=== PATIENT | female | born 2000 | race Caucasian/White ===

== ENCOUNTER 2024-01-29 13:50 | Outpatient (AMB) | payer OTHER, SELFPAY ==
--- NOTE | 2024-01-29 14:21 | A.OFFVIS_ITS ---
Vital Signs 01/29/24 14:44 Height 5 ft 6 in Weight 184 lb 1.376 oz BMI 29.7 BP 108/67 Blood Pressure Location Lt brachial Position Sitting Pulse 92 Pulse Source Doppler Pulse Oximetry (%) 97 Oxygen Delivery Method Room Air Intake Visit Reasons: Cough Allergies antibiotics Allergy (Severe, Uncoded 01/29/24 14:50) Rash HPI HPI Cough: Details: 23-year-old lady, nonsmoker, with no prior personal history of lung disease and family history of asthma in patient's brother referred for evaluation of chronic cough ongoing for approximately 12 months that initially started with COVID-19 infection. Patient describes cough as intermittently productive of small amount of sputum with no significant diurnal variation, sometimes worse after eating. Patient has been tried on anti current medications, cough suppressants, albuterol MDI, and antibiotics with no significant changes. She does have a r ecent normal pulmonary function testing. She does complain of environmental allergies. Review of Systems Const Denies daytime sleepiness, Denies excessive sweating, Denies fatigue, Denies fever(s), Denies lethargy, Denies malaise, Denies night sweats, Denies snoring and Denies weight loss Eyes Denies blurry vision and Denies itchy eyes ENT Denies nasal congestion, Denies post nasal drip, Denies sinus pain, Denies sinus pressure and Denies other ( Thrush) Card Denies chest pain, Denies pedal edema, Denies dyspnea, Denies orthopnea and Denies paroxysmal nocturnal dyspnea Resp Reports cough, Denies hemoptysis, Denies excessive phlegm production, Denies dyspnea, Denies snoring and Denies wheezing GI Denies abdominal pain and Denies heartburn Musc Denies myalgias, Denies arthralgias and Denies joint swelling Skin/Breast Denies rash Neuro Denies memory loss and Denies seizure-like activity Psych Denies abnormal sleep pattern, Denies anxiety and Denies memory loss Endo Denies excessive sweating, Denies fatigue and Denies heat intolerance Saran/Lymph Denies easy bruising Aller/Immun Denies itchy eyes, Denies seasonal rhinorrhea and Denies wheezing Physical Exam Vital Signs: Last Vital Signs Pulse 92 01/29/24 14:44 BP 108/67 01/29/24 14:44 Pulse Ox 97 01/29/24 14:44 Oxygen Delivery Method Room Air 01/29/24 14:44 BMI result Body Mass Index 29.7 Const General: no acute distress and alert Nutritional Appearance: not obese Orientation/consciousness: Other orientation findings ( oriented) HEENT Head: Yes atraumatic Eyes General: appearance normal, both eyes and all related structures Sclerae: sclerae normal EOM: EOMs intact bilaterally Neck Neck: Yes supple Lymphatic: no lymphadenopathy noted Resp Effort & Inspection: normal respiratory effort and no use of accessory muscles Auscultation: clear to auscultation bilaterally Cardio Rate: regular rate Rhythm: regular rhythm Heart sounds: no gallops, no murmurs and no rubs Skin General skin exam: other ( warm) Extrem General: No clubbing, No cyanosis and No edema Assessment & Plan Assessment & Plan (1) Chronic cough: Code(s): R05.3 - Chronic cough Category: Medical Plan: Unclear etiology, but suspect allergic/immunologic component. Will start on empiric Arnuity. Results of pulmonary function test reviewed and are normal. (2) Environmental allergies: Code(s): Z91.09 - Other allergy status, other than to drugs and biological substances Category: Medical Plan: Will obtain IgE level, CBC with differential, and RAST panel for further evaluation. Orders: Orders Resp Allergy Profile Region I Today Z91.09 - Other allergy status, other than to drugs and biological substances Medications: New fluticasone furoate 200 mcg/actuation (Arnuity Ellipta) 1 inh inhalation DAILY 1 ea 6RF 30 days Coding Level of Care Code New Pt Level 4 (57518) Diagnoses Chronic cough R05.3 Environmental allergies Z91.09
[2024-01-29 14:44] VITALS: BP 108/67; PULSE 92; O2SAT 97; BMI 29.7
== END 2024-01-29 15:08 | disposition home or self-care (01) ==
PROVIDERS: PCP Nurse Practitioner Primary Care; Referring Provider Nurse Practitioner Primary Care; Visit Provider Internal Medicine Pulmonary Disease
DX: R05.3 Chronic cough (principal); Z91.09 Other allergy status, other than to drugs and biological substances
CPT/HCPCS: 99204

== ENCOUNTER 2024-01-29 13:50 | Outpatient (REF) | payer OTHER, SELFPAY ==
[2024-02-02 23:09] LABS: Class Alternaria alternata 0; Class Aspergillus fumigatus 0; Class Bermuda Grass 0; Class Birch 0; Class Cat Dander 0; Class Cladosporium herbarum 0; Class Cockroach 0; Class Common Ragweed 0; Class Cottonwood 0; Class Derm. pterony 0; Class Dermatophagoides farinae 0; Class Dog Dander 0; Class Elm 0; Class Maple Box Elder 0; Class Mountain Cedar 0; Class Mouse Urine Protein 0; Class Mugwort 0; Class Oak 0; Class Penicillium crysogenum 0; Class Rough Pigweed 0; Class Sheep Sorrel 0; Class Sycamore 0; Class Timothy Grass 0; Class Walnut Tree 0; Class White Ash 0; Class White Mulberry 0; D001 IgE D pteronyssinus <0.10 kU/L; D002 - IgE D farinae <0.10 kU/L; E001 - IgE Cat Dander <0.10 kU/L; E005 - IgE Dog Dander <0.10 kU/L; E072-IgE Mouse Urine <0.10 kU/L; G002 IgE Bermuda Grass <0.10 kU/L; G006 - IgE Timothy Grass <0.10 kU/L; I006-IgE Cockroach, German <0.10 kU/L; Immunoglobulin E 4 kU/L (<OR=114); M001 IgE Penicillium chrysogen <0.10 kU/L; M002 - IgE Cladosporium herbar <0.10 kU/L; M003 - IgE Aspergillus fumigat <0.10 kU/L; M006 - IgE Alternaria alternat <0.10 kU/L; T001 IgE Maple/Box Elder <0.10 kU/L; T003 IgE Common Silver Birch <0.10 kU/L; T006 - IgE Cedar, Mountain <0.10 kU/L; T007 - IgE Oak, White <0.10 kU/L; T008 IgE Elm, American <0.10 kU/L; T010 - IgE Walnut <0.10 kU/L; T011 - IgE Maple Leaf Sycamore <0.10 kU/L; T014 - IgE Cottonwood <0.10 kU/L; T015 - IgE Ash, White <0.10 kU/L; T070 - IgE White Mulberry <0.10 kU/L; W001 - IgE Ragweed, Short <0.10 kU/L; W006 - IgE Mugwort <0.10 kU/L; W014 IgE Pigweed, Common <0.10 kU/L; W018 IgE Sheep Sorrel <0.10 kU/L
== END 2024-01-29 13:51 | disposition home or self-care (01) ==
LOC: HO.LAB 13:50
PROVIDERS: PCP Nurse Practitioner Primary Care; Referring Provider Nurse Practitioner Primary Care; Visit Provider Internal Medicine Pulmonary Disease
DX: R05.3 Chronic cough (principal); Z91.09 Other allergy status, other than to drugs and biological substances
CPT/HCPCS: 36415; 82785; 86003

== ENCOUNTER 2024-02-24 13:29 | Outpatient (AMB) | payer OTHER, SELFPAY ==
[2024-02-24 13:31] VITALS: BP 102/72; PULSE 121; O2SAT 97; BMI 29.0
--- NOTE | 2024-02-24 13:31 | MHC.OFFVIS ---
Vital Signs 02/24/24 13:31 Height 5 ft 6 in Weight 179 lb 10.828 oz BMI 29.0 BP 102/72 Blood Pressure Location Rt brachial Position Sitting Pulse 121 H Pulse Source Doppler Pulse Oximetry (%) 97 Oxygen Delivery Method Room Air Intake Visit Reasons: Cough Allergies antibiotics Allergy (Severe, Uncoded 01/29/24 14:50) Rash HPI HPI Cough: Details: 23-year-old lady, nonsmoker, with no prior personal history of lung disease and family history of asthma in patient's brother referred for evaluation of chronic cough ongoing for approximately 12 months that initially started with COVID-19 infection. Patient describes cough as intermittently productive of small amount of sputum with no significant diurnal variation, sometimes worse after eating. Patient has been tried on anti current medications, cough suppressants, albuterol MDI, and antibiotics with no significant changes. She does have a recent normal pulmonary function testing. She does complain of environmental allergies. After the last office visit patient was started on Arnuity, however she also got a bout of bronchitis that may have masked the response to Arnuity. She does complain of lingering cough though productive component has cleared. She is also complaining of nasal congestion. Review of Systems Const Denies daytime sleepiness, Denies excessive sweating, Denies fatigue, Denies fever(s), Denies lethargy, Denies malaise, Denies night sweats, Denies snoring and Denies weight loss Eyes Denies blurry vision and Denies itchy eyes ENT Reports nasal congestion, Reports post nasal drip, Denies sinus pain, Denies sinus pressure and Denies other ( Thrush) Card Denies chest pain, Denies pedal edema, Denies dyspnea, Denies orthopnea and Denies paroxysmal nocturnal dyspnea Resp Reports cough, Denies hemoptysis, Denies excessive phlegm production, Denies dyspnea, Denies snoring and Denies wheezing GI Denies abdominal pain and Denies heartburn Musc Denies myalgias, Denies arthralgias and Denies joint swelling Skin/Breast Denies rash Neuro Denies memory loss and Denies seizure-like activity Psych Denies abnormal sleep pattern, Denies anxiety and Denies memory loss Endo Denies excessive sweating, Denies fatigue and Denies heat intolerance Saran/Lymph Denies easy bruising Aller/Immun Denies itchy eyes, Denies seasonal rhinorrhea and Denies wheezing Physical Exam Vital Signs: Last Vital Signs Pulse 121 H 02/24/24 13:31 BP 102/72 02/24/24 13:31 Pulse Ox 97 02/24/24 13:31 Oxygen Delivery Method Room Air 02/24/24 13:31 BMI result Body Mass Index 29.0 Const General: no acute distress and alert Nutritional Appearance: not obese Orientation/consciousness: Other orientation findings ( oriented) HEENT Head: Yes atraumatic Eyes General: appearance normal, both eyes and all related structures Sclerae: sclerae normal EOM: EOMs intact bilaterally Neck Neck: Yes supple Lymphatic: no lymphadenopathy noted Resp Effort & Inspection: normal respiratory effort and no use of accessory muscles Auscultation: clear to auscultation bilaterally Cardio Rate: regular rate Rhythm: regular rhythm Heart sounds: no gallops, no murmurs and no rubs Skin General skin exam: other ( warm) Extrem General: No clubbing, No cyanosis and No edema Assessment & Plan Assessment & Plan (1) Environmental allergies: Code(s): Z91.09 - Other allergy status, other than to drugs and biological substances Category: Medical Plan: Results of immunologic studies reviewed, and at this time there is no significant allergic component. Patient does complain of significant postnasal drip, will start on empiric ipratropium. (2) Chronic cough: Code(s): R05.3 - Chronic cough Category: Medical Plan: Now after a bronchitic exacerbation. Will start on empiric codeine and continue on Arnuity, if not better on Arnuity, will consider switching to Breo. Medications: New codeine-guaifenesin 10-100 mg/5 mL 10 mL PO Q4-6H PRN 473 mL 0RF cough 14 days ipratropium bromide administer into each nostril 2 sprays intranasal TID 15 mL 6RF 30 days Coding Level of Care Code Est Pt Level 4 (69525) Diagnoses Environmental allergies Z91.09 Chronic cough R05.3
== END 2024-02-24 14:04 | disposition home or self-care (01) ==
PROVIDERS: PCP Nurse Practitioner Primary Care; Visit Provider Internal Medicine Pulmonary Disease
DX: Z91.09 Other allergy status, other than to drugs and biological substances (principal); R05.3 Chronic cough
CPT/HCPCS: 99214

== ENCOUNTER → 2024-02-24 13:29 | Outpatient (BNVA) | payer OTHER, SELFPAY | PROVIDERS: PCP Nurse Practitioner Primary Care; Visit Provider Internal Medicine Pulmonary Disease ==

== ENCOUNTER 2024-03-16 14:35 | Outpatient (AMB) | payer OTHER, SELFPAY ==
[2024-03-16 14:38] VITALS: BP 122/74; PULSE 110; O2SAT 96; BMI 28.8
--- NOTE | 2024-03-16 14:38 | MHC.OFFVIS ---
Vital Signs 03/16/24 14:38 Height 5 ft 6 in Weight 178 lb 9.191 oz BMI 28.8 BP 122/74 Blood Pressure Location Lt brachial Position Sitting Pulse 110 H Pulse Source Pulse Oximeter Pulse Oximetry (%) 96 Oxygen Delivery Method Room Air Intake Visit Reasons: Cough Allergies antibiotics Allergy (Severe, Uncoded 03/16/24 14:40) Rash HPI HPI Cough: Details: 23-year-old lady, nonsmoker, with no prior personal history of lung disease and family history of asthma in patient's brother referred for evaluation of chronic cough ongoing for approximately 12 months that initially started with COVID-19 infection. Patient describes cough as intermittently productive of small amount of sputum with no significant diurnal variation, sometimes worse after eating. Patient has been tried on anti current medications, cough suppressants, albuterol MDI, and antibiotics with no significant changes. She does have a recent normal pulmonary function testing. She does complain of environmental allergies. After the last office visit patient states that her cough symptoms have improved significantly, but not completely resolved and she does have significant worsening after eating. Review of Systems Const Denies daytime sleepiness, Denies excessive sweating, Denies fatigue, Denies fever(s), Denies lethargy, Denies malaise, Denies night sweats, Denies snoring and Denies weight loss Eyes Denies blurry vision and Denies itchy eyes ENT Denies nasal congestion, Denies post nasal drip, Denies sinus pain, Denies sinus pressure and Denies other ( Thrush) Card Denies chest pain, Denies pedal edema, Denies dyspnea, Denies orthopnea and Denies paroxysmal nocturnal dyspnea Resp Reports cough, Denies hemoptysis, Denies excessive phlegm production, Denies dyspnea, Denies snoring and Denies wheezing GI Denies abdominal pain and Denies heartburn Musc Denies myalgias, Denies arthralgias and Denies joint swelling Skin/Breast Denies rash Neuro Denies memory loss and Denies seizure-like activity Psych Denies abnormal sleep pattern, Denies anxiety and Denies memory loss Endo Denies excessive sweating, Denies fatigue and Denies heat intolerance Saran/Lymph Denies easy bruising Aller/Immun Denies itchy eyes, Denies seasonal rhinorrhea and Denies wheezing Physical Exam Vital Signs: Last Vital Signs Pulse 110 H 06/11/24 14:38 BP 122/74 03/16/24 14:38 Pulse Ox 96 03/16/24 14:38 Oxygen Delivery Method Room Air 03/16/24 14:38 BMI result Body Mass Index 28.8 Const General: no acute distress and alert Nutritional Appearance: not obese Orientation/consciousness: Other orientation findings ( oriented) HEENT Head: Yes atraumatic Eyes General: appearance normal, both eyes and all related structures Sclerae: sclerae normal EOM: EOMs intact bilaterally Neck Neck: Yes supple Lymphatic: no lymphadenopathy noted Resp Effort & Inspection: normal respiratory effort and no use of accessory muscles Auscultation: clear to auscultation bilaterally Cardio Rate: regular rate Rhythm: regular rhythm Heart sounds: no gallops, no murmurs and no rubs Skin General skin exam: other ( warm) Extrem General: No clubbing, No cyanosis and No edema Assessment & Plan Assessment & Plan (1) Chronic cough: Code(s): R05.3 - Chronic cough Category: Medical Plan: improved symptoms on Arnuity/nasal ipratropium / codeine syrup. Continue with current regimen. (2) GERD (gastroesophageal reflux disease): Code(s): K21.9 - Gastro-esophageal reflux disease without esophagitis Category: Medical Plan: Will start on b.i.d. omeprazole. Medications: New omeprazole 40 mg PO BID 60 caps 2RF Refilled codeine-guaifenesin 10-100 mg/5 mL 10 mL PO Q4-6H PRN 473 mL 0RF cough 14 days Coding Level of Care Code Est Pt Level 4 (44984) Diagnoses Chronic cough R05.3 GERD (gastroesophageal reflux disease) K21.9
== END 2024-03-16 15:00 | disposition home or self-care (01) ==
PROVIDERS: PCP Nurse Practitioner Primary Care; Visit Provider Internal Medicine Pulmonary Disease
DX: R05.3 Chronic cough (principal); K21.9 Gastro-esophageal reflux disease without esophagitis
CPT/HCPCS: 99214

== ENCOUNTER → 2024-03-16 14:35 | Outpatient (BNVA) | payer OTHER, SELFPAY | PROVIDERS: PCP Nurse Practitioner Primary Care; Visit Provider Internal Medicine Pulmonary Disease ==

== ENCOUNTER 2024-06-22 14:15 | Outpatient (AMB) | payer OTHER, SELFPAY ==
[2024-06-22 14:19] VITALS: BP 110/62; PULSE 98; O2SAT 98; BMI 30.1
--- NOTE | 2024-06-22 14:19 | A.OFFVIS_ITS ---
Vital Signs 06/22/24 14:19 Height 5 ft 6 in Weight 186 lb 4.65 oz BMI 30.1 BP 110/62 Blood Pressure Location Rt brachial Position Sitting Pulse 98 Pulse Source Doppler Pulse Oximetry (%) 98 Oxygen Delivery Method Room Air Intake Visit Reasons: Cough Allergies antibiotics Allergy (Severe, Uncoded 03/16/24 14:40) Rash HPI HPI Cough: Details: 23-year-old lady, nonsmoker, with no prior personal history of lung disease and family history of asthma in patient's brother referred for evaluation of chronic cough ongoing for approximately 12 months that initially started with COVID-19 infection. Patient describes cough as intermittently productive of small amount of sputum with no significant diurnal variation, sometimes worse after eating. Patient has been tried on anti current medications, cough suppressants, albuterol MDI, and antibiotics with no significant changes. She does have a re cent normal pulmonary function testing. She does complain of environmental allergies. After the last office visit patient has been using omeprazole, nasal ipratropium, and Arnuity with somewhat improved control of his symptoms. She does continue to complain of significant swallowing/eating related cough and is pending GI evaluation. Review of Systems Const Denies daytime sleepiness, Denies excessive sweating, Denies fatigue, Denies fever(s), Denies lethargy, Denies malaise, Denies night sweats, Denies snoring and Denies weight loss Eyes Denies blurry vision and Denies itchy eyes ENT Denies nasal congestion, Denies post nasal drip, Denies sinus pain, Denies sinus pressure and Denies other ( Thrush) Card Denies chest pain, Denies pedal edema, Denies dyspnea, Denies orthopnea and Denies paroxysmal nocturnal dyspnea Resp Reports cough, Denies hemoptysis, Denies excessive phlegm production, Denies dyspnea, Denies snoring and Denies wheezing GI Denies abdominal pain and Denies heartburn Musc Denies myalgias, Denies arthralgias and Denies joint swelling Skin/Breast Denies rash Neuro Denies memory loss and Denies seizure-like activity Psych Denies abnormal sleep pattern, Denies anxiety and Denies memory loss Endo Denies excessive sweating, Denies fatigue and Denies heat intolerance Saran/Lymph Denies easy bruising Aller/Immun Denies itchy eyes, Denies seasonal rhinorrhea and Denies wheezing Physical Exam Vital Signs: Last Vital Signs Pulse 98 06/22/24 14:19 BP 110/62 06/22/24 14:19 Pulse Ox 98 06/22/24 14:19 Oxygen Delivery Method Room Air 06/22/24 14:19 BMI result Body Mass Index 30.1 Const General: no acute distress and alert Nutritional Appearance: not obese Orientation/consciousness: Other orientation findings ( oriented) HEENT Head: Yes atraumatic Eyes General: appearance normal, both eyes and all related structures Sclerae: sclerae normal EOM: EOMs intact bilaterally Neck Neck: Yes supple Lymphatic: no lymphadenopathy noted Resp Effort & Inspection: normal respiratory effort and no use of accessory muscles Auscultation: clear to auscultation bilaterally Cardio Rate: regular rate Rhythm: regular rhythm Heart sounds: no gallops, no murmurs and no rubs Skin General skin exam: other ( warm) Extrem General: No clubbing, No cyanosis and No edema Assessment & Plan Assessment & Plan (1) Chronic cough: Code(s): R05.3 - Chronic cough Category: Medical (2) GERD (gastroesophageal reflux disease): Code(s): K21.9 - Gastro-esophageal reflux disease without esophagitis Category: Medical (3) Environmental allergies: Code(s): Z91.09 - Other allergy status, other than to drugs and biological substances Category: Medical Plan Some improvement on current therapy, however not complete symptom control. Patient is scheduled to have GI evaluation with likely EGD/MBS. Will await GI evaluation before proceeding further. Continue current therapeutic regimen including nasal ipratropium, omeprazole, Arnuity. Coding Level of Care Code Est Pt Level 4 (63722) Diagnoses Chronic cough R05.3 GERD (gastroesophageal reflux disease) K21.9 Environmental allergies Z91.09
== END 2024-06-22 15:54 | disposition home or self-care (01) ==
PROVIDERS: PCP Nurse Practitioner Primary Care; Visit Provider Internal Medicine Pulmonary Disease
DX: R05.3 Chronic cough (principal); K21.9 Gastro-esophageal reflux disease without esophagitis; Z91.09 Other allergy status, other than to drugs and biological substances
CPT/HCPCS: 99214

== ENCOUNTER → 2024-06-22 14:15 | Outpatient (BNVA) | payer OTHER, SELFPAY | PROVIDERS: PCP Nurse Practitioner Primary Care; Visit Provider Internal Medicine Pulmonary Disease ==

== ENCOUNTER 2024-08-19 15:34 | Outpatient (REF) | payer OTHER, SELFPAY | END 2024-08-19 15:35 | disposition home or self-care (01) | LOC: HO.LAB 15:34 | PROVIDERS: PCP Nurse Practitioner Primary Care; Visit Provider Nurse Practitioner | DX: Z13.89 Encounter for screening for other disorder (principal) ==

== ENCOUNTER 2024-08-26 14:02 | Outpatient (REF) | payer OTHER, SELFPAY ==
--- NOTE | ~2024-08-26 | US_ITS ---
EXAMINATION: US ABDOMEN COMPLETE CLINICAL INFORMATION: Gastroesophageal reflux disease without esophagitis. COMPARISON: None available. TECHNIQUE: Real-time imaging of the abdominal viscera. FINDINGS: PANCREAS: Normal. ABDOMINAL AORTA: The proximal, mid, and distal segments are normal in caliber. INFERIOR VENA CAVA: Visualized portions are normal. LIVER: Normal. The liver is normal in size. The liver contour is normal. Parenchymal echogenicity is normal. No focal hepatic lesion. There is no intrahepatic biliary duct dilatation seen. GALLBLADDER: Normal. The gallbladder is physiologically distended without evidence of stones, sludge, polyps, wall thickening or pericholecystic fluid. COMMON BILE DUCT: Normal in caliber measuring 0.2 cm in diameter. RIGHT KIDNEY: Normal. No hydronephrosis. No renal calculi or focal parenchymal lesions. The kidney measures 9.3 cm in maximum dimension. LEFT KIDNEY: Normal. No hydronephrosis. No renal calculi or focal parenchymal lesions. The kidney measures 10.3 cm in maximum dimension. SPLEEN: Normal. The spleen measures 9.6 cm in maximum dimension. FREE FLUID: None. US/US abdomen complete IMPRESSION: Normal ultrasound. Electronically signed by: Richar Reed MD 09/26/2024 12:01 PM CECIL ANNE
[2024-08-26 16:19] LABS: MANUAL DIFF FLAG NO
[2024-08-26 16:31] LABS: Basophils Absolute Auto 0.1 X10*3/uL (0.0-0.2); Basophils Percent Auto 0.6 % (0-2); Eosinophils Absolute Auto 0.1 X10*3/uL (0.0-0.4); Eosinophils Percent Auto 0.9 % (0-4); Hematocrit 41.6 % (37.0-47.0); Hemoglobin 13.8 g/dl (12.0-16.0); Imm Gran Abs Auto 0.02 X10*3/uL (0.00-0.03); Imm Gran Pct Auto 0.2 % (0.0-0.4); Lymphocytes Absolute Auto 2.2 X10*3/uL (1.2-4.9); Lymphocytes Percent Auto 26.7 % (20-40); Mean Corpuscular HGB Conc 33.2 g/dl (31.0-35.0); Mean Corpuscular Hemoglobin 27.5 pg (27.0-33.0); Mean Corpuscular Volume 82.9 fL (80.0-98.0); Mean Platelet Volume 9.1 fL (9.4-12.3); Monocytes Absolute Auto 0.5 X10*3/uL (0.1-1.2); Monocytes Percent Auto 6.2 % (2-11); Neutrophils Absolute Auto 5.4 x10*3/uL (2.0-8.3); Neutrophils Percent Auto 65.4 % (45-73); Platelet Count 434 X10*3/uL (160-400); Red Blood Count 5.02 X10*6/uL (4.20-5.50); Red Cell Distribution Width 13.2 % (11.0-16.0); White Blood Count 8.2 X10*3/uL (4.8-10.8)
[2024-08-26 16:55] LABS: Alanine Aminotransferase 15 U/L (0-31); Albumin Level 4.2 g/dL (3.5-5.0); Alkaline Phosphatase 96 U/L (39-117); Anion Gap 12 (12-20); Aspartate Amino Transferase 22 U/L (5-31); Bilirubin Total 0.4 mg/dL (0.0-1.0); Blood Urea Nitrogen 11 mg/dL (9-16); Calcium 9.7 mg/dL (8.4-10.2); Carbon Dioxide 25 mmol/L (22-29); Chloride 106 mmol/L (96-108); Estimated Glomerular Filt Rate > 60; Glucose Random 89 mg/dL (60-115); Potassium 3.4 mmol/L (3.3-5.1); Sodium 140 mmol/L (135-145); Total Protein 7.6 g/dL (6.5-8.0)
[2024-09-08 10:35] LABS: Immunoglobulin A 155
[2024-09-08 10:36] LABS: Transglutaminase IgA <1.0
== END 2024-08-26 14:03 | disposition home or self-care (01) ==
LOC: HO.HMGCX 14:02
PROVIDERS: PCP Nurse Practitioner Primary Care; Visit Provider Nurse Practitioner
DX: K21.9 Gastro-esophageal reflux disease without esophagitis (principal); R19.7 Diarrhea, unspecified
CPT/HCPCS: 36415; 76700; 80053; 82784; 85025; 86003; 86364

== ENCOUNTER 2024-11-04 15:36 | Outpatient (AMB) | payer OTHER, SELFPAY ==
--- NOTE | 2024-11-04 15:39 | A.OFFVIS_ITS ---
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 Allergies fluoxetine [From Prozac] Allergy (Unknown, Verified 11/04/24 15:40) Rash Penicillins Allergy (Unknown, Verified 11/04/24 15:40) Rash Medication List - Last Reconciled 11/04/24 by Katiuska Wadsworth, ROLLER PICKER ipratropium bromide 2 sprays intranasal TID 30 days L norgest/e.estradiol-e.estrad 0.15 mg-30 mcg (84)/10 mcg (7) ([place]) 1 tab PO DAILY methylphenidate HCl ER 36 mg PO QAM omeprazole 40 mg PO BID HPI HPI cough: Details: 23-year-old lady, nonsmoker, with no prior personal history of lung disease and family history of asthma in patient's brother referred for evaluation of chronic cough ongoing for approximately 12 months that initially started with COVID-19 infection. Patient describes cough as intermittently productive of small amount of sputum with no significant diurnal variation, sometimes worse after eating. Patient has been tried on anti current medications, cough suppressants, albuterol MDI, and antibiotics with no significant changes. She does have a recent normal pulmonary function testing. She does complain of environmental allergies. After the last office visit patient has stopped Arnuity as it did not change his symptoms. She still has not had her full GI workup. [facility] Surgical History S/P tonsillectomy History of appendectomy Family History Mother Hodgkin lymphoma Maternal Grandmother Breast cancer Social History Alcohol intake: current Alcohol intake frequency: holidays/special occasions only Patient Tobacco Use Status: Never used Tobacco Review of Systems Const Denies daytime sleepiness, Denies excessive sweating, Denies fatigue, Denies fever(s), Denies lethargy, Denies malaise, Denies night sweats, Denies snoring and Denies weight loss Eyes Denies blurry vision and Denies itchy eyes ENT Denies nasal congestion, Denies post nasal drip, Denies sinus pain, Denies sinus pressure and Denies other ( Thrush) Card Denies chest pain, Denies pedal edema, Denies dyspnea, Denies orthopnea and Denies paroxysmal nocturnal dyspnea Resp Reports cough, Denies hemoptysis, Denies excessive phlegm production, Denies dyspnea, Denies snoring and Denies wheezing GI Denies abdominal pain and Denies heartburn Musc Denies myalgias, Denies arthralgias and Denies joint swelling Skin/Breast Denies rash Neuro Denies memory loss and Denies seizure-like activity Psych Denies abnormal sleep pattern, Denies anxiety and Denies memory loss Endo Denies excessive sweating, Denies fatigue and Denies heat intolerance Saran/Lymph Denies easy bruising Aller/Immun Denies itchy eyes, Denies seasonal rhinorrhea and Denies wheezing Physical Exam Vital Signs: Last Vital Signs Pulse 110 H 11/04/24 15:42 BP 118/66 11/04/24 15:42 Pulse Ox 97 11/04/24 15:42 Oxygen Delivery Method Room Air 11/04/24 15:42 BMI result Body Mass Index 30.6 Const General: no acute distress and alert Nutritional Appearance: not obese Orientation/consciousness: Other orientation findings ( oriented) HEENT Head: Yes atraumatic Eyes General: appearance normal, both eyes and all related structures Sclerae: sclerae normal EOM: EOMs intact bilaterally Neck Neck: Yes supple Lymphatic: no lymphadenopathy noted Resp Effort & Inspection: normal respiratory effort and no use of accessory muscles Auscultation: clear to auscultation bilaterally Cardio Rate: regular rate Rhythm: regular rhythm Heart sounds: no gallops, no murmurs and no rubs Skin General skin exam: other ( warm) Extrem General: No clubbing, No cyanosis and No edema Assessment & Plan Assessment & Plan (1) Chronic cough: Code(s): R05.3 - Chronic cough Category: Medical Plan: Unclear etiology, appears to have significant GI component. Will await c ompletion of GI workup. Coding Level of Care Code Est Pt Level 3 (27228) Diagnoses Chronic cough R05.3
[2024-11-04 15:42] VITALS: BP 118/66; PULSE 110; O2SAT 97; BMI 30.6
--- OUTSIDE RECORDS SUMMARY | 2024-11-04 19:19 | XMS_ITS | Clinical Summary ---
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
--- OUTSIDE RECORDS SUMMARY | 2024-11-04 19:20 | XMS_ITS | Data Portability ---
Author Organization [place] - [facility], [facility] Address [address] [place] [address] Assessment Encounter Date Assessment Date Assessment LastModified by Organization Details LastModified Time 01/18/2020 01/18/2020 19 yo female with nl G&D, AG/VC given, +S, -ACD; Screening - Urine GC/Chlam, call if abnl; ADD/ADHD - overall doing well, no side effects, cont current dose of Concerta 36 mg, rarely ever taking 10 mg short acting, f/u 6mths; Anxiety - overall stable, doing well, not in therapy; L Shoulder pain - x mths, unable to see Ortho at this time due to plasencia virus, will get Xrays now, call pt regardless kcamera Not available 01/18/2020 15:55:54 09/12/2020 09/12/2020 ADD/ADHD - academically doing a little worse since fell behind while in hospital and post op from ruptured appy, currently B/C's, meds help, no side effects from Methyphenidate, cont, f/u 6 mths at [facility]; Allergic reaction to Augment - hx hives day 7 of Amox years ago, hives/red/peelin g improving per pt, finished of her Augment last night, discussed with pt need to avoid Amox/PCN/Augment in future kcamera Not available 09/12/2020 12:54:32 02/14/2021 02/14/2021 20 yo female with nl Development, AG/VC given, +S/A, -C/D; BMI 28.4 - diet/exercise discussed, just joined gym; Screening lipid panel - had tran for breakfast, call if abnormal - since not fasting was wnl; ADD/ADHD - academically doing fair, struggling with remote learning, lengthy discussion re: finding 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 tutor/asking for help at beginning of next semester/organiz ing study groups to inc chance of success (especially if still remote and pt encouraged to get her Covid shot as well though currently not planning to do so), f/u Jul 2021; Anxiety - overall ok, no therapy, suggested she id therapist through her college; [employer] - has [employer] and on [facility], gets STD screening there; Transitioning - since has one more year of college agreed to see pt for her senior year and then she will need to id Adult MD after that phong Not available 02/14/2021 10:38:55 03/08/2021 03/08/2021 20yo F with several weeks of left sided low back pain. Has new workout routine and the pain may be due to that. On exam, her pain is located right over her SI joint. Suspect the pain is all muscular in nature and will refer to ortho. Given family history of kidney stones and patient with history of duplicate collecting system, s/p deflux procedure, did check a urine. Urine dip in office with moderate blood, however, UA at lab only showed trace hgb and 1 RBC. Doubt that this is a kidney stone. Urine GC/chlamydia sent, urine negative. If she has continued pain, especially if flank or wrapping around to the abdomen or visible blood in the urine, would get an US of kidneys. Spent >30 mins with patient in room, reviewing records, documentation and reviewing urine labs. Patient cell htirpaeck Not available 03/09/2021 08:53:22 10/24/2021 10/24/2021 ADD/ADHD - academically doing well on dose, primarily taking long acting qAM, no side effects, cont same dose, aware she needs to id Adult MD and med provider who may be Adult MD or psychiatrist, agreed to cover her meds through graduation this February 2022 only, pt to try to get appt with her Mom's MD; Anxiety - inc with school stress, no therapy or meds, not limiting life; Hx Covid - mild sxs, recovered, nl PE, cleared; Migraine without aura - hydration/sleep/ regular meals, dec stress as able Spent 50 min with pt phong Not available 10/24/2021 17:39:40 Plan of Treatment Reminders Order Date Submit Date Provider Last Modified By Organization Details Last Modified Time Details Appointments None recorde d. Lab CT + NG DNA, PCR, urine 2019 020 SIXTO [facility], [address] [place], [address], 0 11:00:38 lipid panel, blood 2020 [facility], [address] [place] [address], [phone], 1 10:23:42 urinaly sis, dipstic k 2020 [facility], [address] [place] [address], [phone], 1 15:16:38 CT + NG DNA, PCR, urine 2020 021 [facility], [address], [place], [address], 1 10:00:08 pregnan cy test, urine 2020 [facility], [address] [place] [address], [phone], 1 15:15:40 unliste d lab - urinaly sis w/refle x culture 2020 [facility], [address] [place], [address], 03:26:36 Referral orthope dic referra l - L lower back, SI joint pain 2020 [facility] (Joseph Cormier), [address], [place], [address], 1 17:08:53 Procedures None recorde d. Surgeries None recorde d. Imaging XR, shoulde r - L upper humeral /should er pain for months, r/o abnorma lity 2019 lliberti Not available 0 16:52:04 XR, humerus - L upper humeral pain for months, r/o abnorma lity 2019 lliberti Not available 0 16:52:18 Medication Orders methylp henidat e ER 36 mg tablet, extende d release 24 hr 2019 020 INTERFACE [id number], [address] [place], [address], 0 15:50:24 methylp henidat e ER 36 mg tablet, extende d release 24 hr 2019 020 SIXTO [id number], [address] [place], [address], 0 12:29:11 Patient TargetsNo targets recorded. Patient Instructions Encounter Date Encounter Id Patient Instructions Last Modified By Organization Details Last Modified Time 01/18/2020 [id number] program - 5 fruits & veggies kcamera Not available 01/18/2020 14:41:25 [id number] program - 1 hour of exercise kcamera Not available 01/18/2020 14:41:26 patient health questionnaire depression assessment* kcamera Not available 01/18/2020 14:45:19 immunization: what you need to know kcamera Not available 01/18/2020 14:41:26 02/14/2021 [id number] program - 5 fruits & veggies kcamera Not available 02/14/2021 09:22:00 [id number] program - 1 hour of exercise kcamera Not available 02/14/2021 09:22:00 patient health questionnaire depression assessment* kcamera Not available 02/14/2021 09:31:13 immunization: what you need to know kcamera Not available 02/14/2021 09:22:00 03/08/2021 [id number] back care and preventing injuries: care instructions htirpaeck Not available 03/08/2021 14:50:46 getting back to normal after low back pain: care instructions htirpaeck Not available 03/08/2021 14:50:46 learning about relief for back pain htirpaeck Not available 03/08/2021 14:50:46 10/24/2021 [id number] vision screen* SIXOT Not available 10/24/2021 16:34:12 Reason for Referral Orthopedic Referral for Low back pain L lower back, SI joint pain Referring Physician: Felicitas Herrera, Pediatric Medicine, Encounter Date: 03/08/2021 Results Created Date Observation Date Name Description Value Unit Range Abnormal Flag Note LastModifiedBy Organization Detail LastModifiedTime 01/18/20 20 01/18/2020 patie nt healt h quest ionna americo depre ssion asses sment * PHQ-9 negati ve Not Available [facility] [address] [place] [address], [phone], 01/18/2020 14:02:50 01/18/20 20 01/19/2020 CT + NG DNA, PCR, urine urine chlamydia amp probe (neg) normal NEGAT IRMA No Chlam ydia Trach omati s RNA detec christina in this patie nt's sampl e (REFE RENCE RANGE /NORM AL VALUE : NOT DETEC CHRISTINA) Note: This test uses trans cript ion- media christina ampli ficat ion metho d to detec t rRNA from C. Trach omati s Not Available [facility] [address] [place], [address], 01/19/2020 11:00:38 01/18/20 20 01/19/2020 CT + NG DNA, PCR, urine urine GC amp probe (neg) normal NEGAT IRMA No Neiss eria Gonor rhoea e RNA detec christina in this patie nt's sampl e (REFE RENCE RANGE /NORM AL VALUE : NOT DETEC CHRISTINA) NOTE: This test uses trans cript ion-m ediat ed ampli ficat ion metho d to detec t rRNA from N.Delfino orrho eae. A negat irma resul t does not precl ude infec tion. In the case of a negat irma urine resul t, testi ng of an endoc ervic al(fe male) or ureth ral (male ) speci men is recom holden d if there is high clini emma suspi cion of infec tion. Due to very high sensi tivit y of Nucle ic Acid Ampli ficat ion Test, false posit irma resul ts may occur . There fore, speci men handl ing is extre jennifer impor tant. In patie nts in whom the disea se is unlik aries, addit ional sampl e for testi ng shoul d be consi dered after an initi al posit irma resul t. The perfo rmanc e consuelo cteri stics of this test have not been evalu ated in child jaden. The Aptim a Combo 2 assay is not inten ded for the evalu ation of suspe cted sexua l abuse or for other medic o-leg al indic ation s. The order ing provi daryn shoul d asses s if the patie nt had conse nsual sex witho ut risk of sexua l abuse . [facility] if neede d. Conta ct phone numbe r . Thera peuti c failu re or succe ss canno t be deter mined with the Aptim a Combo 2 assay since nucle ic acid may persi st follo wing appro priat e antim icrob ial thera py. The Cente rs for Disea se Contr ol and Preve ntion ([facility]) recom mends confi rmato ry retes ting using cultu re or a diffe rent nucle ic acid ampli ficat ion test when posit irma resul ts occur , if indic ated. Not Available [facility] [address], [place], [address], 01/19/2020 11:00:38 02/15/20 21 02/14/2021 patie nt healt h quest ionna americo depre ssion asses sment * PHQ-9 negati ve Not Available [facility] [address] [place] [address], [place], [address], 02/01/2021 09:10:25 03/08/20 21 03/09/2021 urina lysis w/ref miguel cultu re appear/color YELLO W CLEAR Not Available [facility] [address] [place], [address], 03/09/2021 03:26:33 03/08/20 21 03/09/2021 urina lysis w/ref miguel cultu re sp. gravity 1.026 (1.002 -1.030 ) Not Available [facility] [address] [place], [address], 03/09/2021 03:26:33 03/08/20 21 03/09/2021 urina lysis w/ref miguel cultu re urine pH 6.0 (5.0-8 .0) Not Available [facility] [address] [place], [address], 03/09/2021 03:26:33 03/08/20 21 03/09/2021 urina lysis w/ref miguel cultu re urine albumin TRACE (neg) abnormal Not Available [facility] [address] [place], [address], 03/09/2021 03:26:33 03/08/20 21 03/09/2021 urina lysis w/ref miguel cultu re urine glucose NEGATI VE (neg) Not Available [facility] [address] [place], [address], 03/09/2021 03:26:33 03/08/20 21 03/09/2021 urina lysis w/ref miguel cultu re urine ketones NEGATI VE (neg) Not Available [facility] [address] [place], [address], 03/09/2021 03:26:33 03/08/20 21 03/09/2021 urina lysis w/ref miguel cultu re urine bilirubin NEGATI VE (neg) Not Available [facility] [address] [place], [address], 03/09/2021 03:26:33 03/08/20 21 03/09/2021 urina lysis w/ref miguel cultu re urine hemoglobin TRACE (neg) abnormal Not Available [facility] [address] [place], [address], 03/09/2021 03:26:33 03/08/20 21 03/09/2021 urina lysis w/ref miguel cultu re urine nitrite NEGATI VE (neg) Not Available [facility] [address] [place], [address], 03/09/2021 03:26:33 03/08/20 21 03/09/2021 urina lysis w/ref miguel cultu re urine leukocyte NEGATI VE (neg) Not Available [facility] [address] [place], [address], 03/09/2021 03:26:33 03/08/20 21 03/09/2021 urina lysis w/ref miguel cultu re urobilinogen NORMAL mg/dL (norm) Not Available [facility] [address] [place], [address], 03/09/2021 03:26:33 03/08/20 21 03/09/2021 urina lysis w/ref miguel cultu re urine WBCs 1 /hpf (0-5) Not Available [facility] [address] [place], [address], 03/09/2021 03:26:33 03/08/20 21 03/09/2021 urina lysis w/ref miguel cultu re urine RBCs 1 /hpf (0-3) Not Available [facility] [address] [place], [address], 03/09/2021 03:26:33 03/08/20 21 03/09/2021 urina lysis w/ref miguel cultu re mucus SLIGHT /lpf Not Available [facility] [address] [place], [address], 03/09/2021 03:26:33 03/08/20 21 03/09/2021 urina lysis w/ref miguel cultu re squamous epith 12 /hpf (0-8) high Not Available [facility] [address] [place], [address], 03/09/2021 03:26:33 03/08/20 21 03/09/2021 urina lysis w/ref miguel cultu re clarity CLEAR (clear ) Not Available [facility] [address] [place], [address], 03/09/2021 03:26:33 03/08/20 21 03/09/2021 urina lysis w/ref mgiuel cultu re culture indication CULTUR E NOT INDICA CHRISTINA Not Available [facility] [address] [place], [address], 03/09/2021 03:26:33 03/08/20 21 03/09/2021 CT + NG DNA, PCR, urine urine chlamydia amp probe (neg) NEGAT IRMA No Chlam ydia Trach omati s RNA detec christina in this patie nt's sampl e (REFE RENCE RANGE /NORM AL VALUE : NOT DETEC CHRISTINA) Note: This test uses trans cript ion- media christina ampli ficat ion metho d to detec t rRNA from C. Trach omati s Not Available [facility] [address] [place], [address], 03/09/2021 10:00:08 03/08/20 21 03/09/2021 CT + NG DNA, PCR, urine urine GC amp probe (neg) NEGAT IRMA No Neiss eria Gonor rhoea e RNA detec christina in this patie nt's sampl e (REFE RENCE RANGE /NORM AL VALUE : NOT DETEC CHRISTINA) NOTE: This test uses trans cript ion-m ediat ed ampli ficat ion metho d to detec t rRNA from N.Delfino orrho eae. A negat irma resul t does not precl ude infec tion. In the case of a negat irma urine resul t, testi ng of an endoc ervic al(fe male) or ureth ral (male ) speci men is recom holden d if there is high clini emma suspi cion of infec tion. Due to very high sensi tivit y of Nucle ic Acid Ampli ficat ion Test, false posit irma resul ts may occur . There fore, speci men handl ing is extre jennifer impor tant. In patie nts in whom the disea se is unlik aries, addit ional sampl e for testi ng shoul d be consi dered after an initi al posit irma resul t. The perfo rmanc e consuelo cteri stics of this test have not been evalu ated in child jaden. The Aptim a Combo 2 assay is not inten ded for the evalu ation of suspe cted sexua l abuse or for other medic o-leg al indic ation s. The order ing provi daryn shoul d asses s if the patie nt had conse nsual sex witho ut risk of sexua l abuse . [facility] lt [facility] if neede d. Conta ct phone numbe r . Thera peuti c failu re or succe ss canno t be deter mined with the Aptim a Combo 2 assay since nucle ic acid may persi st follo wing appro priat e antim icrob ial thera py. The Cente rs for Disea se Contr ol and Preve ntion ([facility]) recom mends confi rmato ry retes ting using cultu re or a diffe rent nucle ic acid ampli ficat ion test when posit irma resul ts occur , if indic ated. Not Available [facility] [address] [place], [address], 03/09/2021 10:00:08 03/08/20 21 03/08/2021 urina lysis , dipst ick Leukocytes Negati ve Not Available [facility] [address] [place] [address], [address], 03/08/2021 14:50:58 03/08/20 21 03/08/2021 urina lysis , dipst ick Nitrite negati ve Not Available [facility] [address] [place] [address], [address], 03/08/2021 14:50:58 03/08/20 21 03/08/2021 urina lysis , dipst ick Urobilinogen Negati ve Not Available [facility] [address] [place] [address], [address], 03/08/2021 14:50:58 03/08/20 21 03/08/2021 urina lysis , dipst ick Protein Negati ve Not Available [address], [address], 03/08/2021 14:50:58 03/08/20 21 03/08/2021 urina lysis , dipst ick pH 5.0 Not Available [address], [address], 03/08/2021 14:50:58 03/08/20 21 03/08/2021 urina lysis , dipst ick Blood 3+ Not Available [address], [address], 03/08/2021 14:50:58 03/08/20 21 03/08/2021 urina lysis , dipst ick Specific Churdan 1.020 Not Available [address], [address], 03/08/2021 14:50:58 03/08/20 21 03/08/2021 urina lysis , dipst ick Ketone Negati ve Not Available [address], [address], 03/08/2021 14:50:58 03/08/20 21 03/08/2021 urina lysis , dipst ick Bilirubin Negati ve Not Available [address], [address], 03/08/2021 14:50:58 03/08/20 21 03/08/2021 urina lysis , dipst ick Glucose Negati ve Not Available [address], [address], 03/08/2021 14:50:58 03/08/20 21 03/08/2021 pregn shayne test, urine Result negati ve Not Available [address], [address], 03/08/2021 15:01:21 10/24/19 22 10/24/2021 visio n scree n* RIGHT (SNELLEN) Not Available [address], [address], 10/24/2021 16:20:23 10/24/19 22 10/24/2021 visio n scree n* LEFT (SNELLEN) Not Available [address], [address], 10/24/2021 16:20:23 10/24/19 22 10/24/2021 visio n scree n* BOTH (SNELLEN) Not Available [address], [address], 10/24/2021 16:20:23 01/18/20 20 01/18/2020 XR, kourtney us No observ ation record ed. lvoight Not Available 2019 09:51:16 Result Notes None recorded. Problems Name Problem SNOMED Code Status Onset Date Resolution Date Notes Provider Name and Address Organization Details Recorded Time Disorder of menstrua tion 142721753 Active on OCPs through [employer] Elizabet Alvarado MD [address] [place] [address], [address] , [facility] - [facility] 10:34:23 Motor tic disorder 638828164 Active Elizabet Alvarado MD [address] [place] [address], , [facility] 4 17:12:59 Tic disorder 640175 Completed 04/22/2016 Elizabet Alvarado MD [address] [place] [address], , [facility] 6 09:14:07 Seizure 30850277 Completed 04/22/2016 Elizabet Alvarado MD [address] [place] [address], , [facility] 6 09:14:10 Otitis 63642606 Completed 04/22/2016 Elizabet Alvarado MD [address] [place] [address], , [facility] 6 09:14:01 Urticari a 763878508 Completed 04/22/2016 Elizabet Alvarado MD [address] [place] [address], , [facility] 6 09:13:50 Peeling of skin 491017191 Completed 04/22/2016 Elizabet Alvarado MD [address] [place] [address], , [facility] 6 09:13:57 Otitis externa 4573012 Completed 04/22/2016 Elizabet Alvarado MD [address] [place] [address], , [facility] 6 09:13:55 Streptoc occal sore throat 24438883 Completed 03/14/2017 Elizabet Alvarado MD [address] [place] [address], , [facility] 7 08:44:53 Anxiety 33761329 Active anxiety disorder per therapis t Fanny Elizabet Alvarado MD [address] [place] [address], , [facility] 8 15:51:35 Increase d body mass index 90801383 Completed 01/18/2020 Elizabet Alvarado MD [address] [place] [address], , [facility] 0 15:57:09 Acute pharyngi tis 974292957 Completed 04/22/2016 Elizabet Alvarado MD [address] [place] [address], , [facility] 6 08:57:30 Ventilat ion tube finding 277236814 Completed 201802/14/2021 Elizabet Alvarado MD [address] [place] [address], , [facility] 1 10:34:12 Gastroes ophageal reflux disease 460791760 Completed 201802/14/2021 resolved 12/2019 Elizabet Alvarado MD [address] [place] [address], , [facility] 1 10:40:32 Shoulder pain 22210257 Completed 201902/14/2021 Xrays ordered, refer to Radha Alvarado MD [address] [place] [address], , [facility] 1 10:34:09 Low back pain 227522819 Active 2020 radha Herrera [facility] 1 08:53:28 History of SARS-CoV -2 [id number] 7525903 Active 2021 +09/2021 , mild sxs Elizabet Alvarado MD [address] [place] [address], , [facility] 2 16:12:00 Migraine 38574623 Active 2021 Elizabet Alvarado MD [address] [place] [address], , [facility] 2 16:17:16 Acute suppurat irma otitis media with spontane ous rupture of ear drum 05490196 Completed 01/26/2013 Not Available [facility] 3 03:01:13 Cough 75542868 Completed 01/02/2012 Not Available [facility] 3 03:01:13 Contusio n of globe of eye 472545308 Completed 01/26/2013 Not Available [facility] 3 03:01:13 Otitis media 24960160 Completed 200701/02/2012 Not Available [facility] 3 03:01:13 Viral disease 98431905 Completed 200801/02/2012 Not Available [facility] 3 03:01:13 Disorder of middle ear 97691081 Completed 01/02/2012 Not Available [facility] 3 03:01:13 Urinary tract infectio us disease 78714117 Completed 200601/02/2012 Not Available [facility] 3 03:01:13 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 659336947 Completed 01/02/2012 Not Available [facility] 3 03:01:13 Acute conjunct ivitis 09268603 Completed 01/26/2013 Not Available [facility] 3 03:01:13 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 Elizabet Alvarado MD [address] [place] [address], , [facility] 5 12:58:06 Otitis externa 4917958 Completed 01/26/2013 Elizabet Alvarado MD [address] [place] [address], , [facility] 6 09:13:55 Otitis externa 2826284 Completed 200801/02/2012 Elizabet Alvarado MD [address] [place] [address], , [facility] 6 09:13:55 Allergic rhinitis 51120382 Completed 01/02/2012 Not Available [facility] 3 03:01:13 Pain in limb 96155390 Completed 01/02/2012 Not Available [facility] 3 03:01:13 Streptoc occal sore throat 96497805 Completed 01/02/2012 Elizabet Alvarado MD [address] [place] [address], , [facility] 7 08:44:53 Viral pneumoni a 69505085 Completed 200701/02/2012 Not Available [facility] 3 03:01:13 Problem Notes None recorded. Procedures Surgical History Date Name Laterality Status Provider Name and Address Organization Details Recorded Time 0 Appendectomy completed Elizabet Alvarado MD [address] [place], [address], [facility] 09/06/2020 13:57:52 Imaging Results Imaging Date Name Status LastModified by Organiz ation Details LastModified Time 01/18/2020 XR, humerus completed lvoight Information n ot available 01/20/2020 09:51:16 Procedure Notes None recorded. Medical Equipment None Reported. Allergies Allergen ID Allergen Name Allergen Category Reaction Reaction Severity Criticality Documentation Date Start Date Code Code System Note Provider Name and Address Organization Details Recorded Time 03497 Prozac medicatio n Not available Not available Not available 12/30/2013 92090 RxNorm motor tic Andrew Quan MD [address] [place] [address], 3, [facility] 4 14:56:22 77564 Augmentin medicatio n hives Not available Not available 05/16/2014 62278 2 RxNorm day 7 of 2019 whole body hives after appen dicit is Elizabet Alvarado MD [address] [place] [address], 3, [facility] 0 12:13:51 Medications Name Sig Start Date Stop Date Status Note LastModified by Organization Details LastModified Time Apri 0.15 mg-0.03 mg tablet TAKE 1 TABLET BY MOUTH EVERY DAY 03/09 completed Not Available Not Available Not Available methylphe nidate 10 mg tablet TAKE 1 TABLET BY MOUTH EVERY EVENING active PRN Not Available Not Available No t Available Claritin 10 mg tablet Take 1 tablet every day by oral route for 30 days. 2009 active PRN Not Available Not Available Not Avai lable methylphe nidate 5 mg tablet active Not Available Not Available No t Available penicilli n V potassium 500 mg tablet Take 1 tablet twice a day by oral route for 10 days. 10/21 completed MORE THAN 60 POUNDS TWICE DAILY DOSING FROM NEW STREP PROTOCOL Not Available Not Available Not Available melatonin 3 mg tablet TAKE 1 TABLET BY MOUTH AT BEDTIME active PRN Not Available Not Available No t Available tramadol 50 mg tablet 02/14 completed Not Available Not Available Not Available acetamino phen 120 mg-codein e 12 mg/5 mL Elixir active Not Available Not Available No t Available ofloxacin 0.3 % ear drops INSTILL 5 DROPS INTO AFFECTED EAR(S) 2 TIMES PER DAY 04/28 completed Not Available Not Available Not Available ciproflox acin 0.3 % eye drops active Not Available Not Available Not Available Nortrel 0.5/35 (28) 0.5 mg-35 mcg tablet TAKE 1 TABLET BY MOUTH EVERY DAY 02/14 completed Not Available Not Available Not Available cephalexi n 500 mg capsule active Not Available Not Available Not Available oseltamiv ir 75 mg capsule TAKE 1 CAPSULE BY MOUTH TWICE A DAY FOR 14 DAYS active Not Available Not Available No t Available Concerta 36 mg tablet,ex tended release TAKE 1 TABLET BY MOUTH EVERY DAY IN THE MORNING DIRECTED active Not Available Not Available No t Available polymyxin B sulfate 10,000 unit-trim ethoprim 1 mg/mL eye drops Instill 2 drops into both eyes 3 times daily for 5 days active Not Available Not Available No t Available ibuprofen 400 mg tablet 02/14 completed Not Available Not Available Not Available fluoxetin e 10 mg capsule active Not Available Not Available Not Available omeprazol e 20 mg capsule,d elayed release TAKE 1 CAPSULE BY MOUTH EVERY DAY 12/13 completed Not Available Not Available Not Available cephalexi n 500 mg tablet Take 1 tablet 3 times a day by oral route for 10 days. 2014 active Not Available Not Available Not Avai lable amoxicill in 250 mg capsule active Not Available Not Available Not Available hydrocodo ne 5 mg-acetam inophen 500 mg tablet active Not Available Not Available Not Available ibuprofen 600 mg tablet active Not Available Not Available Not Available methylphe nidate ER 18 mg tablet,ex tended release 24 hr active Not Available Not Available Not Available fluticaso ne propionat e 50 mcg/actua tion nasal spray,ashley pension [facility] 1 spray every day by intranas al route at bedtime. active Not Available Not Available No t Available amoxicill in 875 mg-potass ium clavulana te 125 mg tablet Take 1 tablet every 12 hours by oral route for 10 days. 09/12 completed Not Available Not Available Not Available tobramyci n 0.3 %-dexamet hasone 0.1 % eye drops,ashley pension active Not Available Not Available Not Available neomycin- polymyxin -hydrocor t 3.5 mg-10,000 unit/mL-1 % ear drops,ashley p INSTILL 4 DROPS INTO AFFECTED EAR 3 TIMES A DAY FOR 7 DAYS 04/22 completed Not Available Not Available Not Available methylphe nidate ER 27 mg tablet,ex tended release 24 hr active Not Available Not Available Not Available Ciprodex 0.3 %-0.1 % ear drops,ashley pension INSTILL 4 DROPS INTO AFFECTED EAR(S) BY OTIC ROUTE 2 TIMES PER DAY FOR 7 D... 04/22 completed Not Available Not Available Not Available chlorhexi dine gluconate 0.12 % mouthwash active Not Available Not Available No t Available multivita min active AND IRON QD Not Available Not Available Not Available Alyacen 1/35 (28) 1 mg-35 mcg tablet TAKE 1 TABLET BY MOUTH EVERY DAY active Not Available Not Available No t Available Fluzone Quad 5773-8939 60 mcg (15 mcg x 4)/0.5 mL intramusc ular susp. VACCINAT ION ADMINIST ERED BY PHARMACI ST 12/13 completed Not Available Not Available Not Available Vitals Date Recorded Body height Body mass index (BMI) Percentile per age and sex Body mass index (BMI) Body weight Systolic blood pressure Diastolic blood pressure Provider Name and Address Organization Details Last Updated DateTime 0 167.64 cm 83 % 26 kg/m2 40055.0 9 g 114 mm[Hg] 60 mm[Hg] Monique Gomes [facility] 0 14:05:44 Date Recorded Body height Body mass index (BMI) Percentile per age and sex Body mass index (BMI) Body weight Systolic blood pressure Diastolic blood pressure Provider Name and Address Organization Details Last Updated DateTime 0 167.64 cm 81 % 25.9 kg/m2 38065.5 g 108 mm[Hg] 62 mm[Hg] Glenys Rodriguez R.N. [facility] 0 11:43:18 Date Recorded Body height Body mass index (BMI) Body weight Systolic blood pressure Diastolic blood pressure Provider Name and Address Organization Details Last Updated DateTime 02/14/2021 167.64 cm 28.4 kg/m2 35681.98 g 116 mm[Hg] 64 mm[Hg] Monique Gomes [facility] 1 09:05:29 Date Recorded Body height Body mass index (BMI) Body weight Systolic blood pressure Diastolic blood pressure Provider Name and Address Organization Details Last Updated DateTime 10/24/2021 167.64 cm 31.6 kg/m2 01776.67 g 108 mm[Hg] 62 mm[Hg] Xochitl Cordoba R.N. [facility] 2 15:58:19 Social History Question Answer Notes LastModified by Organizat ion Details LastModified Time Tobacco Smoking Status Never Smoker Evette Benavides, [facility] 01/02/2012 16:10:45 Have There Been Any Changes To Your Family Or Social Situation? No Information not available 02/14/2021 Hard Of Hearing Or Deaf In One Or Both Ears? No Information not available 04/22/2016 Legally Blind In One Or Both Eyes? No Information not available 04/22/2016 Parent's Marital Status 05 Information not available 08/10/2011 Home Situation Mother Information not available 08/10/2011 Siblings Mili (F) 09/27/1994 Salvador Spain (M) 05 Information not available 08/10/2011 Year In School [employer] 2020 Information not available 02/14/2021 Parent's Name Niesha [email or web address] Information not available 08/10/2011 Parent's Name Mitchel --sees Dad Appx 2-3 X Per Wk Information not available 08/10/2011 DSS/DCF Custody No Information not available 04/22/2016 What Was The Date Of Your Most Recent Tobacco Screening? 04/28/2019 [email or web address]_ Information not available 04/29/2019 Are You Passively Exposed To Smoke? No slevin Information not available 12/30/2013 How Much Tobacco Do You Smoke? No Information not available 04/22/2016 Sex: Unknown Functional Status None recorded. Mental Status None recorded. Family History Relationship Description Onset Age of this Age Resolved Age Notes LastModified by Organization Details LastModified Time Mother Problem Rangel ns Not available 02/15/2015 08:42:25 Mother Diabetes mellitus previo usly record ed as Diabet es Not available 02/15/2015 08:42:25 Mother Malignant neoplastic disease previo usly record ed as Cancer Not available 02/15/2015 08:42:25 Maternal Grandmother Hypercholest erolemia previo usly record ed as Elevat ed Choles terol Not available 02/15/2015 08:42:25 Maternal Grandmother Malignant neoplastic disease previo usly record ed as Cancer Not available 02/15/2015 08:42:25 Paternal Grandmother Alcoholism Not available 08:42:25 Father Allergy season al, seafoo d, nuts (previ ously record ed as Allerg ies) Not available 02/15/2015 08:42:25 Father Disorder of thyroid gland Not available 2014 08:42:25 Notes:Updated 02/14/21 Medical History Condition Response CARDIAC PROBLEMS N ALLERGIC AND IMMUNOLOGIC PROBLEMS Y DEVELOPMENTAL/ BEHAVIORAL PROBLEMS Y GENITOURINARY Y HOSPITALIZATIONS Y ACCIDENTS INJURIES N VISION IMPAIRMENT N ENDOCRINE PROBLEMS/DIABETES N GI PROBLEMS/CONSTIPATION Y OPHTHALMOLOGIC PROBLEMS N ORTHOPEDIC PROBLEMS Y CHICKEN POX / VARICELLA HISTORY or POSIT IRMA TITER N HEARING IMPAIRMENT N MUSCLE/ JOINT/ BONE PROBLEMS N RHEUMATOLOGIC PROBLEMS N DERMATOLOGIC PROBLEMS/ECZEMA N ENT PROBLEMS/OTITIS MEDIA/ CHRONIC Y FUEL CELL BINDER PROBLEMS Y HEMATOLOGIC /ONCOLOGIC PROBLEMS N RENAL PROBLEMS N OTHER N NEUROLOGIC/ SEIZURES OR CONVULSIONS N ADHD Y HEADACHES/MIGRAINES/DIZZINESS N CONGENITAL AND GENETIC PROBLEMS N INFECTIOUS DISEASE PROBLEMS Y PUMONARY PROBLEMS/ ASTHMA N PSYCH PROBLEMS N Gynecological History Statement/Question Response Date of LMP 02/13/2021 Age at onset of periods 11 yrs 04/15/2016 Obstetrics History GPAL:G 0 P 0 0 0 0 Immunizations Vaccine Type Date Status Note Provider Nam e and Address Organization Details Recorded Time meningococcal MCV4P 1 completed Not Available [facility] 2019 02:33:25 Tdap 1 completed Not Available [facility] 02:[facility]42 Influenza, split virus, trivalent, preservative 1 completed Not Available [facility] 2019 02:35:18 HPV, quadrivalent 2 completed Not Available [facility] 2019 02:33:59 HPV, quadrivalent 2 completed Not Available [facility] 2019 02:34:00 Influenza, split virus, trivalent, preservative 2 completed Not Available [facility] 2019 02:35:23 HPV, quadrivalent 2 completed Not Available [facility] 2019 02:34:02 Influenza, split virus, quadrivalent, PF 3 completed Not Available [facility] 2019 02:35:37 Influenza, split virus, quadrivalent, PF 4 completed Not Available [facility] 2019 02:35:57 Influenza, split virus, quadrivalent, PF 5 completed Not Available [facility] 2019 02:36:26 meningococcal MCV4P 6 completed Not Available [facility] 2019 02:36:47 Influenza, split virus, quadrivalent, PF 6 completed Not Available [facility] 2019 02:37:08 influenza, unspecified formulation 9 completed Brit ch [place] [facility] 12/14/2019 14:39:16 meningococcal B, OMV 7 completed Not Available [facility] 2019 02:37:44 Influenza, split virus, quadrivalent, PF 7 completed Not Available [facility] 2019 02:37:53 meningococcal B, OMV 7 completed Not Available [facility] 2019 02:38:07 varicella 0 completed Not Available [facility] 2019 02:33:08 Influenza, split virus, quadrivalent, PF 8 completed Not Available [facility] 2019 02:38:35 Hep A, adult 0 completed JORGE LUIS Gomes, [facility] 01/18/2020 14:48:18 Influenza, split virus, quadrivalent, PF 0 completed Elizabet Alvarado MD [address] [place] [address], [place], [place], , [facility] 07/22/2020 11:37:38 Hep A, adult 0 completed Amy Keyes, [facility] 09/12/2020 13:04:48 Td (adult), 2 Lf tetanus toxoid, preservative free, adsorbed 1 completed JORGE LUIS Gomes, [facility] 02/14/2021 09:52:43 IPV 0 completed Not Available [facility] 08/10/2011 03:17:38 IPV 0 completed Not Available [facility] 08/10/2011 03:17:38 IPV 1 completed Not Available [facility] 08/10/2011 03:17:38 DTaP, unspecified formulation 0 completed Not Available [facility] 08/10/2011 03:17:38 IPV 4 completed Not Available [facility] 08/10/2011 03:17:38 DTaP, unspecified formulation 0 completed Not Available [facility] 08/10/2011 03:17:38 MMR 4 completed Not Available [facility] 08/10/2011 03:19:09 DTaP, unspecified formulation 0 completed Not Available [facility] 08/10/2011 03:17:38 MMR 1 completed Not Available [facility] 08/10/2011 03:17:38 DTaP, unspecified formulation 1 completed Not Available [facility] 08/10/2011 03:17:38 DTaP, unspecified formulation 4 completed Not Available [facility] 08/10/2011 03:17:38 pneumococcal conjugate PCV 7 1 completed Not Available [facility] 08/10/2011 03:17:38 pneumococcal conjugate PCV 7 1 completed Not Available [facility] 08/10/2011 03:17:38 varicella 1 completed Not Available [facility] 08/10/2011 03:17:38 Hep B, unspecified formulation 0 completed Not Available [facility] 08/10/2011 03:17:38 Hep B, unspecified formulation 0 completed Not Available [facility] 08/10/2011 03:17:38 Hep B, unspecified formulation 0 completed Not Available [facility] 08/10/2011 03:17:38 pneumococcal conjugate PCV 7 0 completed Not Available [facility] 08/10/2011 03:19:09 Hib, unspecified formulation 0 completed Not Available [facility] 08/10/2011 03:17:38 Hib, unspecified formulation 0 completed Not Available [facility] 08/10/2011 03:17:38 Hib, unspecified formulation 0 completed Not Available [facility] 08/10/2011 03:17:38 Hib, unspecified formulation 1 completed Not Available [facility] 08/10/2011 03:17:38 Past Encounters Encounter ID Performer Location Encounter Start Date Encounter Closed Date Diagnosis/Indication Diagnosis SNOMED-CT Code Diagnosis ICD10 Code Diagnosis Note [id number] [facility] [address] [place] [address] [place] [address] 09/11/2007 11:02:57 09/11/2007 13:15:31 [id number] [facility] [address] [place] [address] [place] [address] 4 01/19/2008 10:13:21 01/19/2008 10:41:59 [id number] [facility] [address] [place] [address] [place] [address] 4 12/27/2008 16:44:36 12/27/2008 16:58:27 [id number] [facility] [address] [place] [address] [place] [address] 4 01/10/2009 09:45:59 01/10/2009 10:03:28 [id number] [facility] [address] [place] [address] [place] [address] 4 03/20/2009 09:03:45 03/20/2009 09:26:54 [id number] [facility] [address] [place] [address] 09/18/2009 09:40:53 09/18/2009 10:40:39 [id number] [facility] [address] [place] [address] 4 12/19/2009 09:55:09 12/19/2009 11:10:32 [id number] [facility] [address] [place] [id number] 4 07/12/2010 16:15:55 07/12/2010 17:22:33 [id number] [facility] [address] [place] [id number] 4 08/21/2010 10:31:07 08/21/2010 12:50:07 [id number] [facility] [address] [place] [address] 4 09/04/2010 09:59:46 09/04/2010 11:28:22 [id number] [facility] [address] [place] [id number] 4 10/11/2010 09:41:19 10/11/2010 10:51:24 [id number] [facility] [address] [place] [address] 4 12/25/2010 12:59:07 12/25/2010 17:05:14 [id number] [facility] [address] [place] [address] 01/02/2012 15:56:59 01/02/2012 17:08:08 [id number] [facility] [address] [place] [id number] 4 03/12/2012 16:24:08 03/12/2012 16:52:05 [id number] [facility] [address] [place] [address] 4 05/20/2012 11:41:58 05/20/2012 12:00:18 [id number] Andrew Quan MD [facility] [address] [place] [id number] 4 07/10/2012 14:47:37 07/10/2012 16:15:59 [id number] Mitchel Cortez [facility] [address] [place] [id number] 4 08/12/2012 10:48:06 08/12/2012 11:18:25 [id number] Andrew Quan MD [facility] [address] [place] [id number] 4 01/26/2013 09:51:04 01/26/2013 10:26:22 [id number] Elizabet Alvarado MD [facility] [address] [place] [id number] 4 12/02/2013 15:07:47 12/02/2013 17:04:53 Disorder of menstruation 285716456 [id number] [facility] [address] [place] [id number] 4 12/30/2013 12:48:23 12/30/2013 14:55:40 Motor tic disorder 887627606 Adverse re action to drug 53474088 [id number] [facility] w [address] [place] [id number] 4 01/25/2014 13:00:32 01/25/2014 13:55:33 Well child 693219098 Child atte ntion deficit disorder 530560143 [id number] [facility] Shaun [address] [address] 4 03/17/2014 15:09:46 03/17/2014 16:39:34 Disorder of menstruation 103336494 Motor tic disorder 286806941 [id number] [facility] w [address] [place] [id number] 4 03/25/2014 16:26:36 03/25/2014 17:00:57 Tic disorder 600019 Seizure 31469313 [id number] Bee Mckenzie M.A. [facility] [address] [place] [id number] 4 05/02/2014 15:12:23 05/02/2014 15:42:53 Otitis 75008963 [id number] Alba Dowling M.A. [facility] [address] [place] [id number] 4 05/16/2014 16:35:03 05/16/2014 17:04:42 Urticaria 546716499 Peeling of skin 637749750 Otitis externa 1724383 [id number] Alba Dowling M.A. [address] [address] 4 12/15/2014 14:16:55 12/15/2014 15:50:07 Streptococcal sore throat 59993815 [id number] [address] [address] 4 02/15/2015 08:27:34 02/15/2015 13:03:53 Well child 075179524 Child atte ntion deficit disorder 003961668 Anxiety 67229618 Seizure 02742997 Tic disorder 176448 Academic problem 2953828 Increased body mass index 19438294 [id number] [address] [address] 4 05/25/2015 13:33:18 05/25/2015 14:27:30 Acute pharyngitis 906416149 Otitis externa 6760710 [id number] Andrew Quan MD [address] [address] 4 08/14/2015 16:24:06 08/14/2015 17:59:58 Active or passive immunization 693478955 Z23 [id number] Elizabet Alvarado MD [address] [address] 4 04/22/2016 08:10:38 04/22/2016 09:27:18 Well child 375307579 Z00.129 Active or passive immunization 401333277 Z23 Anxiety 10436691 F41.9 Tic disorder 148469 F98 .4 Disorder o f menstruation 959967256 N92.6 [id number] Elizabet Alvarado MD [address] [address] 4 06/20/2017 15:21:03 06/20/2017 16:40:11 Active or passive immunization 324754701 Z23 Well child 291936173 Z00 .129 Disorder o f menstruation 128677172 N92.6 Child atte ntion deficit disorder 299760429 F98.8 Motor tic disorder 67010 7001 F95.8 Increased body mass index 16205276 E66.9 Anxiety 00300592 F41.9 [id number] Pam Tierney [facility] [address] [place] [address] 07/23/2017 15:21:07 07/23/2017 15:52:52 Active or passive immunization 477356808 Z23 [id number] Elizabet Alvarado MD [facility] [address] [place] [address] 4 12/19/2017 14:56:45 12/19/2017 16:27:45 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 647898002 F90.9 Anxiety 62969644 F41.9 Disorder o f menstruation 788838960 N92.6 [id number] Elizabet Alvarado MD [facility] [address] [place] [address] 02/02/2018 15:59:00 02/02/2018 17:25:35 Anxiety 65981936 F41.9 [id number] Elizabet Alvarado MD [facility] [address] [place] [address] 4 02/23/2018 14:49:42 02/24/2018 10:02:02 Anxiety 39120134 F41.9 [id number] Elizabet Alvarado MD [facility] [address] [place] [address] 4 03/09/2018 08:17:14 03/09/2018 09:23:10 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 278212319 F90.9 Anxiety 43741599 F41.9 Disorder o f menstruation 632646513 N92.6 [id number] Elizabet [facility]varado MD [facility] [address] [place] [address] 08/10/2018 08:19:22 08/10/2018 10:30:00 Active or passive immunization 695953728 Z23 Adult heal th examination 939308458 Z00.00 Increased body mass index 50162839 E66.3 Child atte ntion deficit disorder 445300849 F90.9 Anxiety 34537119 F41.9 [id number] Elizabet Alvarado MD [facility] [address] [place] [address] 01/06/2019 16:06:49 01/06/2019 16:54:01 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 822620997 F90.9 Anxiety 46341648 F41.9 [id number] Pam Tierney [address] [address] 4 03/12/2019 15:31:27 03/12/2019 16:08:18 Ventilation tube finding 104844681 Z96.22 PET in L TM seems blockedHas not been to ENT in ?7 years-Refe rral to [facility] [place] for ?blocked PET Non-suppur ative otitis media with eustachian tube disorder 982455778 H65.90 [id number] Melissa Mathisnico, DO [facility] w [address] [place] [id number] 4 04/28/2019 12:42:20 04/28/2019 13:35:44 Gastroesophageal reflux disease 041376612 K21.9 Disorder o f menstruation 957827693 N92.6 Child atte ntion deficit disorder 241356418 F98.8 Contact dermatitis 36459 004 L25.9 [id number] Melissadewey Mathisnico, DO [address] [address] 4 06/14/2019 14:31:36 06/14/2019 15:15:18 Gastroesophageal reflux disease 500522366 K21.9 Anxiety 22754736 F41.9 [id number] Elizabet Alvarado MD [address] [address] 4 12/14/2019 14:26:08 12/14/2019 16:18:22 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 598916212 F90.9 Shoulder pain 88360469 M 25.519 Anxiety 22195548 F41.9 [id number] Elizabet Alvarado MD [address] [address] 4 01/18/2020 13:59:39 01/18/2020 15:56:59 Active or passive immunization 699859672 Z23 Adult heal th examination 525417346 Z00.00 Normal bod y mass index 96469596 Z68.24 Child atte ntion deficit disorder 900955411 F90.9 Anxiety 90916105 F41.9 Shoulder pain 50807477 M 25.519 [id number] Elizabet Alvarado MD [address] [address] 4 09/12/2020 11:35:17 09/12/2020 13:05:02 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 082578477 F90.9 Active or passive immunization 476968800 Z23 Allergic r eaction to drug 729929823 T50.905D [id number] Elizabet Alvarado MD [address] [address] 4 02/14/2021 08:57:33 02/14/2021 10:36:47 Active or passive immunization 117572228 Z23 Adult heal th examination 542703054 Z00.00 Diet education 56175730 Z71.3 Exercises education, guidance, and counseling 815350295 Z71.82 Increased body mass index 74907742 E66.3 Child atte ntion deficit disorder 082078822 F90.9 Anxiety 91120946 F41.9 [id number] Felicitas Tirpaeck [address] [address] 4 03/08/2021 14:31:35 03/08/2021 17:12:39 Low back pain 139644191 M54.5 Microscopic hematuria 19 0187413 R31.29 [id number] Elizabet Alvarado MD [address] [address] 4 10/24/2021 15:36:44 10/24/2021 17:11:25 Anxiety 11254370 F41.9 Child atte ntion deficit disorder 635568721 F98.8 History of SARS-CoV-2 29 55087888 67112978 Z86.16 Migraine 87871055 G43.90 9 Health Concerns Section Related Observation LastModified by Organization Detai ls LastModified Time None Recorded Concern Status LastModified by Organization Details LastModified Time None Recorded Advance Directives Directive None Recorded Payers Encounter Date Sequence Insurance Name Policy Number Policy Murphy Covered Member ID Murphy Member ID Guarantor Name 01/18/2020 1 [facility] [id number] Mitchel Crawley [id number] Salvador Fancy 01/18/2020 1 [place] [facility] Casi Crawley [id number] Salvador Fancy 09/12/2020 1 [facility] [id number] Mitchel Crawley [id number] Salvador Fancy 09/12/2020 1 [place] AMAN[place] Crawley [id number] Salvador Fancy 02/14/2021 1 [facility] [id number] Mitchel Crawley [id number] Salvador Fancy 02/14/2021 1 [place] Craw[place] [id number] Salvador Fancy 03/08/2021 1 [facility] [id number] Mitchel Crawley [id number] Salvador Fancy 03/08/2021 1 [place] Craw[place] [id number] Salvador Fancy 10/24/2021 1 [facility] [id number] Mitchel Crawley [id number] Salvador Fancy 10/24/2021 1 [place] Craw[place] [id number] Salvador Fancy Notes Date Note Type Note Provider Name and Address Organization Details Recorded Time 01/18/2020 text/html ADD/ ADHDReporte d bypatient.School Performance:attends school college grade /SCHOOL NAME ([employer]); reported medications (Conc 36 mg 04/11; rarely needs short acting); child is learning; improving (A/B/C); good grades A/Bs and mostly A's, usually keeps meds over summer School Support:well supported; teachers are very involved; [address]; can take test in quiet place/extra time tests - only if asks for it and only needed once Organization:good organization skills (for school only) Mood:stable; anxiety - ok when school going well Sleep:good; adequate sleep, not tired at school Appetitenormal appetite; parents allow snacks Friends:well connected with peers; healthy peer relationships; has 5 roommates in her suite at college, everyone gets along Family:no new stressors Self Esteem:improving Medication rebound symptoms:no rebound effects from medicationRS Sick Visit Narrative HistoryReported bypatient.Notes:Pt is here for ADD med recheck. Currently taking Concerta ER 36mg QD. Has Concerta 10mg as well, but rarely takes it, states she took it a couple times last semester. Doing well on current dose. Denies side effects. 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 Mostly Bs. Denies travel outside /[place]/[facility] in last 14 days. Anxiety - overall doing well, school main stress usually, no therapist Denies travel overseas in the last 14 days. Afebrile. Elizabet Alvarado MD [address] [place], [place], , [facility] 01/18/2020 15:57:31 09/12/2020 text/html ADD/ ADHDReporte d bypatient.School Performance:attends school college grade /SCHOOL NAME ([employer]); reported medications (Conc 36 mg 04/11; rarely needs short acting); child is learning; good grades B/Cs and mostly Cs, usually keeps meds over summer School Support:well supported; teachers are very involved; [address]; can take test in quiet place/extra time tests - only if asks for it and only needed once Organization:good organization skills (for school only) Mood:stable; anxiety - ok when school going well Sleep:good; adequate sleep, not tired at school Appetitenormal appetite; parents allow snacks Friends:well connected with peers; healthy peer relationships; remote for now Family:no new stressors Self Esteem:improving Medication rebound symptoms:no rebound effects from medicationRS Sick Visit Narrative HistoryReported bypatient.Notes:Pt is here for ADD med recheck. Currently taking Concerta ER 36mg QD. Has Concerta 10mg as well, but rarely takes it, states she took it a couple times last semester. Doing well on current dose. Denies side effects. 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 Mostly Bs. [place] [place] [facility] [place]. Just had appy that ruptured so needed surgery and abx for long time. Started with itchy red rash and hives all over in hospital and pt feels she was on Amox, meds not stopped, rx Benadryl and pt has red rash/peeling still and took last dose of Augment last night, never had resp sxs Elizabet Alvarado MD [address] [place], [place], , [facility] 09/12/2020 15:41:15 02/14/2021 text/html ADD/ ADHDReporte d bypatient.School Performance:attends school college grade /SCHOOL NAME ([employer]); reported medications (Conc 36 mg 04/11; rarely needs short acting (less than once a mth)); child is learning; good grades B/Cs and mostly Cs, usually keeps meds over summer School Support:well supported; teachers are very involved; [address]; can take test in quiet place/extra time tests - only if asks for it and only needed once Organization:good organization skills (for school only) Mood:stable; anxiety - ok when school going well Sleep:good; adequate sleep, not tired at school Appetitenormal appetite; parents allow snacks Friends:well connected with peers; healthy peer relationships Family:no new stressors Self Esteem:improving Medication rebound symptoms:no rebound effects from medication Here for 20 yr WCC and ADD med check. Currently taking methylphenidate ER 36 in AM and methylphenidate 10 mg in afternoons PRN. Takes Q schools and weekend PRN when working. Doing well on current dose. No side effects or concerns.Good appetite and sleeping well. 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 Denies travel overseas in the last 14 days. Afebrile. Elizabet Alvarado MD [address] [place] [address], [phone], [facility] 02/14/2021 11:10:31 03/08/2021 text/html RS Sick Visit Narrative HistoryReported bypatient.Notes:Pt reports to office for L flank pain. Started a few weeks ago. Comes and goes - is sharp pain at times and achy at times. Feels sharp only when lifting leg. NKI - has been working out a lot recently. Worsens with movement of L leg. Has been mostly using treadmill. Started working out more recently but was lifting more at school and didn't have back pain then. No bruising/swelling/red ness. Have been using ibuprofen/rest for relief. Last took ibuprofen yesterday. No urinary c/o. On OCP, LMP was 2 week ago. Sexually active, using condoms. Afebrile. Denies recent travel. No known sick contacts. Patient thinks it is a pulled muscle but wanted to make sure it wasn't her kidneys. Patient report she has always had issues with her kidneys. Reports that she has had many UTIs without symptoms. Has history of duplicated collecting system s/p surgery. 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 No known Covid 19 exposure. No travel out of [place] or [place] in > 2 weeks. Had Covid two weeks ago - mild, one day of SOB that was mild but resolved, nl now, no SOB or CP;Migraines - worsening lately, not related to Covid, is more stressed, no new meds, sleep was disrupted by Covid, sleep disordered since Covid, worse h/a's with inc screen time; no vision changes but did have photophobia and vomiting; Pt is here for ADHD recheck. Pt taking Concerta ER 36mg daily most days of the week. Occasionally will not take on a weekend day. Has additional 10mg PRN, but has not taken in the past few months. Doing well on current dose. Denies side effects or concerns. No issues with sleep, appetite, or irritability.Anxiety inc with finals in Sep 2021 and now with taking 7 classes in order to try to graduate on timeNo SI Elizabet Alvarado MD [address] [place] [address], [place], [phone], [facility] 10/24/2021 17:39:45 OBGyn Episode No OBEpisode recorded.
--- OUTSIDE RECORDS SUMMARY | 2024-11-04 19:20 | XMS_ITS | Data Portability ---
Author Organization [place] [facility], Allergy Address [address] [address] Care Team Providers Care Ropeman Name Role Phone JAZMINE NAYLOR Primary Care Provider LOVE PARRY Referring Provider [phone] Assessment Encounter Date Assessment Date Assessment LastModified by Organization Details LastModified Time 08/26/2024 08/26/2024 1. Nasal Congest ion 2. Rhinitis 3. Inferior turbinate hypertrophy We discussed management of her nasal congestion and inferior turbinate hypertrophy. The patient's symptoms are consistent with rhinitis, which can have a number of causes. A common cause is allergic rhinitis, which is typically secondary to allergen in the environment. At this point in time the patient has not tried any nasal medication so we will trial some intranasal medication first. - Flonase twice daily for at least one month - Follow-up in 4 months - Consider allergy testing 1. 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 ? ?. Laryngopharyngeal reflux (LPR) is the escape of stomach contents into the throat which can irritate the laryngeal and pharyngeal tissues. LPRD is different than GERD in that it can cause throat clearing, mucus sensation, globus sensation, cough and PVFM. In general, LPRD needs longer periods of treatment at higher doses than GERD. She is currently on omeprazole 40mg twice daily, which is a good start. She is also planned for barium swallow & endoscopy - I will follow-up those results. Muscle tension dysphonia is an abnormal use of the laryngeal and cervical musculature. This can be a primary functional problem or as compensation for glottic insufficiency I recommend evaluation with our speech and language pathologists as well as voice therapy which is medically necessary. We discussed that surgery and medicine may not completely improve the patients symptoms therefore behavioral interventions are necessary to help the patient meet their vocal needs.? - Follow-up in 3-4 months after [employer] SPECIALIST evaluation & therapy [email or web address] Not available 08/26/2024 10:18:17 Plan of Treatment Reminders Order Date Submit Date Provider Last Modified By Organization Details Last Modified Time Details Appointments None recorded. Lab None recorded. Referral speech language pathologist referral - Referral for speech therapy. Thank you. 2023 024 [email or web address] 2 [facility], [address] [place] [address] [place], [id number], 4 10:41:38 Procedures None recorded. Surgeries None recorded. Imaging None recorded. Medication Orders fluticasone propionate 50 mcg/actuati on nasal spray,suspe nsion 2023 024 [facility] #[id number], [address] [place] [address], [id number], 4 09:08:36 Patient TargetsNo targets recorded. Patient InstructionsNo instructions recorded. Reason for Referral Speech Language Pathologist Referral for Muscle tension Referral for speech therapy. Thank you. Referring Physician: Eduardo Del Valle, Otolaryngology, Encounter Date: 08/26/2024 Problems Name Problem SNOMED Code Status Onset Date Resolution Date Notes Provider Name and Address Organization Details Recorded Time Conductiv e hearing loss 53590795 Active 2018 Conductiv e hearing loss, unilatera l, left ear, with unrestric karen hearing on the contralat eral side; Note: Date Diagnosed : 03/16/2019 4:16 PM (H90.12) Not Available [facility] 4 02:24:30 Abnormal auditory perceptio n 78721346 Active 2018 Other abnormal auditory perceptio ns, left ear; Note: Date Diagnosed : 04/12/2019 11:39 AM (H93.292) Not Available [facility] 4 02:24:21 Impacted cerumen in left ear 93870954516 14698 Active 2018 Impacted cerumen, left ear; Note: Date Diagnosed : 03/17/2019 3:55 PM (H61.22) Not Available [facility] 4 02:24:44 Disorder of left Eustachia n tube 47784555564 87197 Active 2018 Other specified disorders of Eustachia n tube, left ear; Note: Date Diagnosed : 03/16/2019 4:16 PM (H69.82) Not Available [facility] 4 02:24:41 Nasal congestio n 77134108 Active 2023 EDUARDO DEL VALLE MD [address],[facility], [place], [address] , [place] [facility] 4 08:52:44 Muscle tension 011300338 Active 2023 EDUARDO DEL VALLE MD [address] [place], [place] [address]on [place] [facility], [place], [address] , [place] [facility] 4 09:11:12 Laryngoph aryngeal reflux 448093825 Active 2023 EDUARDO DEL VALLE MD [address] [place], [place] [address]on [place] [address], [place], [address] , [place] [facility] 4 09:11:38 Chronic rhinitis 53764595 Active 2023 EDUARDO DEL VALLE MD [address] [place], [place] [address]on [place] [address], [place], [address] , [place] [facility] 4 10:18:21 Hypertrop hy of nasal turbinate s 62995964 Active 2023 EDUARDO DEL VALLE MD [address] [place], [place] [address]on [place],[address], [place], [address] , [place] [facility] 4 10:18:26 Problem Notes None recorded. Procedures Surgical History Date Name Laterality Status Provider Name and Address Organization Details Recorded Time 08/26/20 24 Fiberoptic Laryngoscopy (Comprehensive) completed EDUARDO DEL VALLE MD [address] [place], [place] [address]on [place] [facility], [place], [address], [place] [facility] 08/26/2024 10:16:49 Imaging Results None recorded. Procedure Notes None recorded. Medical Equipment None Reported. Allergies Allergen ID Allergen Name Allergen Category Reaction Reaction Severity Criticality Documentation Date Start Date Code Code System Note Provider Name and Address Organization Details Recorded Time 46084 Augmentin medicatio n other Not available Not available 02/17/2024 27494 2 RxNorm React ion: unkno wn, unspe cifie d;; Not Available [facility] 4 00:54:56 Medications Name Sig Start Date Stop Date Status Note LastModified by Organization Details LastModified Time doxycyclin e hyclate 100 mg capsule TAKE 1 CAPSULE BY MOUTH TWICE A DAY FOR 5 DAYS active Not Available Not Available No t Available prednisone 20 mg tablet TAKE 2 TABLETS BY MOUTH ONCE DAILY FOR 5 DAYS active Not Available Not Available No t Available omeprazole 40 mg capsule,de layed release TAKE 1 CAPSULE BY MOUTH TWICE A DAY active Not Available Not Available No t Available benzonatat e 100 mg capsule TAKE 1 CAPSULE BY MOUTH 3 TIMES A DAY FOR 7 DAYS active Not Available Not Available No t Available Nortrel 0.5/35 (28) 0.5 mg-35 mcg tablet 2018 active Medicatio n ID: [id number] Du ration Value: 28 Brand Name: Nortrel 0.5/35 (28) Send Method: E-Prescri bed Subs Allowed: subs OK Specia l Instructi on: TAKE 1 TABLET BY MOUTH EVERY DAY Medic ationGene ricName: Nortrel 0.5/35 (28) Not Available Not Available Not Available omeprazole 20 mg capsule,de layed release TAKE 1 CAPSULE BY MOUTH EVERY DAY BEFORE A MEAL active Not Available Not Available No t Available codeine 10 mg-guaifen esin 100 mg/5 mL oral liquid TAKE 10 ML BY MOUTH EVERY 4 TO 6 HOURS NEEDED FOR COUGH FOR 14 DAYS active Not Available Not Available No t Available ipratropiu m bromide 42 mcg (0.06 %) nasal spray USE 2 SPRAY IN EACH NOSTRIL 3 TIMES A DAY active Not Available Not Available No t Available multivitam in capsule 2018 active Medicatio n ID: [id number] Br and Name: multivita min Send Method: E-Prescri bed Subs Allowed: subs OK Medica tionGener icName: multivita min Not Available Not Available Not Available fluticason e propionate 50 mcg/actuat ion nasal spray,susp ension Tinnie 1 spray twice a day by intranasa l route for 30 days. active Not Available Not Available No t Available naproxen 500 mg tablet TAKE 1 TABLET BY MOUTH TWICE A DAY DIRECTED active Not Available Not Available No t Available methylphen idate ER 36 mg tablet,ext ended release 24 hr TAKE 1 TABLET BY MOUTH ONCE DAILY IN THE MORNING FOR 90 DAYS active Not Available Not Available No t Available Ventolin HFA 90 mcg/actuat ion aerosol inhaler INHALE 2 PUFFS EVERY 4 TO 6 HOURS NEEDED active Not Available Not Available No t Available iron 18 mg tablet 2018 active Medicatio n ID: [id number] Br and Name: iron Send Method: E-Prescri bed Subs Allowed: subs OK Medica tionGener icName: iron Not Available Not Available Not Available Arnuity Ellipta 200 mcg/actuat ion powder for inhalation INHALE 1 DOSE DAILY active Not Available Not Available No t Available Simpesse 0.15 mg-30 mcg (84)/10 mcg(7) tablets,3 month dose pack TAKE 1 TABLET BY MOUTH EVERY DAY active Not Available Not Available No t Available Vitals Date Recorded Body height Body mass index (BMI) Body weight Provider Name and Address Organization Details Last Updated DateTime 08/26/2024 167.64 cm 30.7 kg/m2 10331.55 g Mary Kay Araujo [place] [facility] 08/26/2024 08:49:48 Social History None recorded. Functional Status None recorded. Mental Status None recorded. Family History Nothing Reported. Medical History No medical history recorded. Gynecological HistoryNo gynecological history recorded. Obstetrics History GPAL:G 0 P 0 0 0 0 Past Encounters Encounter ID Performer Location Encounter Start Date Encounter Closed Date Diagnosis/Indication Diagnosis SNOMED-CT Code Diagnosis ICD10 Code Diagnosis Note [id number] EDUARDO DEL VALLE MD [facility] [address] [address] 08/26/2024 08:29:02 08/26/2024 15:17:29 Nasal congestion 58028131 R09.81 Muscle tension 474042812 R29.898 Laryngopha ryngeal reflux 231107976 K21.9 Chronic rhinitis 2913814 6 J31.0 Hypertroph y of nasal turbinates 13787558 J34.3 Health Concerns Section Related Observation LastModified by Organization Detai ls LastModified Time None Recorded Concern Status LastModified by Organization Details LastModified Time None Recorded Advance Directives Directive None Recorded Payers Encounter Date Sequence Insurance Name Policy Number Policy Murphy Covered Member ID Murphy Member ID Guarantor Name 08/26/2024 2 [facility] - HEALTH NET PLAN (MEDICAID HMO) Casi Crawley [id number] Casi Crawley 08/26/2024 1 [facility] [id number] Casi Crawley [id number] Casi Crawley Notes Date Note Type Note Provider Name and Address Organization Details Recorded Time 4 text/html This is a 23yo who presents today for evaluation of nasal congestion. She was last seen in 2019 for conductive hearing loss. She was referred by her primary care provider. She reports ongoing symptoms including globus sensation, throat clearing, reflux, heartburn, nasal congestion, rhinorrhea. She also loses her voice intermittently. She has had evaluation with her PCP who has recommended omeprazole 40 mg twice daily, Atrovent spray for her nose. She is planned for barium swallow and endoscopy to evaluate her throat symptoms. Regarding her nose, she feels like she is always congested. She reports this is seasonal. She has not had allergy testing.? ? ?Associated symptoms: Nasal congestion, nasal pressureMedications trialed: atrovent - no benefitHistory of seasonal allergies: yesHistory of prior nasal trauma: noHistory of recurrent, acute, or chronic sinusitis: noHistory of prior nasal surgery: noPrior intranasal drug use: noSmoking: no EDUARDO DEL VALLE MD [address] [place] [address], [place], [address], [facility] 08/26/2024 10:18:48 OBGyn Episode No OBEpisode recorded.
== END 2024-11-04 15:58 | disposition home or self-care (01) ==
PROVIDERS: PCP Nurse Practitioner Primary Care; Visit Provider Internal Medicine Pulmonary Disease
DX: R05.3 Chronic cough (principal)
CPT/HCPCS: 99213

== ENCOUNTER 2024-11-12 09:29 | Outpatient (REF) | END 2024-11-12 09:30 | disposition home or self-care (01) | LOC: HO.XRAY 09:29 | DX: K21.9 Gastro-esophageal reflux disease without esophagitis (principal) ==

== ENCOUNTER → 2024-11-12 09:30 | Outpatient (BNV) | payer OTHER, SELFPAY | PROVIDERS: PCP Nurse Practitioner Primary Care; Visit Provider Physician Assistant Surgical | DX: K21.9 Gastro-esophageal reflux disease without esophagitis (principal) | CPT/HCPCS: 74246; 74248 ==

== ENCOUNTER 2025-02-24 14:35 | Outpatient (AMB) | payer OTHER, SELFPAY ==
--- NOTE | 2025-02-24 14:37 | MHC.OFFVIS ---
Vital Signs 02/24/25 14:47 Height 5 ft 6 in Weight 190 lb BMI 30.7 BP 106/58 L Blood Pressure Location Rt brachial Position Sitting Pulse 98 Pulse Source Pulse Oximeter Pulse Oximetry (%) 97 Oxygen Delivery Method Room Air Intake Visit Reasons: Follow up labs and barium swallow Intake Note: ESTABLISHED PATIENT for mgmt of GERD. FUV for labs and BA FL (done). CC; C/O occasional, mild to moderate epigastric pain, worse @ night. Pt states that the PPI has helped with mitigating her sx but has not fully resolved them. Pt would like to discuss results of BA FL and the future possibility of EGD. Medical Library Assistant Required: No Accompanied by: Self / Same As Patient Allergies amoxicillin Allergy (Unknown, Verified 02/24/25 14:40) Rash fluoxetine [From Prozac] Allergy (Unknown, Verified 11/04/24 15:40) Rash Penicillins Allergy (Unknown, Verified 11/04/24 15:40) Rash HPI HPI Follow up labs and barium swallow: Details: Assessment & Plan (1) Globus sensation: Code(s): R09.A2 - Foreign body sensation, throat Category: Medical (2) GERD (gastroesophageal reflux disease): Code(s): K21.9 - Gastro-esophageal reflux disease without esophagitis Category: Medical (3) Diarrhea: Comment: :) Code(s): R19.7 - Diarrhea, unspecified Category: Medical Plan She has had 2 years of a chronic globus sensation in her throat with frequent attempts to clear her throat. This greatly worsens if she swallows anything be it liquids or solids. While she does not actually choke at times she feels like things are getting stuck just above the sternal notch after the swallowing reflex was initiated. She does not notice any difference with any types of food eaten or amount. She thinks that these symptoms started after she had a severe case of COVID. She also notes that she generally is quick to become ill with any respiratory illnesses and she seems to have more severity of her respiratory illnesses and they last longer than they do for most other people. She was treated with omeprazole 40 mg twice a day and this improved the problem she was having with heartburn and burping but it really did not have any impact on the globus sensation. She continues on that medication now. She denies any abdominal pain, bloating, constipation or diarrhea. In terms of family history her father has similar problems in his treated for GERD he also has multiple environmental allergies and food allergies. She had some allergy testing here couple years ago but it appears it was only for environmental allergies and not for food allergies. I am also uncertain whether they might have done a serum protein electrophoresis to see if she has any hypogammaglobulinemia that could be contributing to the symptoms and or her feeling like she becomes ill quite quickly. There is no known family history of gallbladder disease. In order to be thorough we will get a barium swallow, an ultrasound of the abdomen, and an upper endoscopy along with some basic labs and a RAST panel for food allergies. It is possible that her problem is multifactorial and is a cross-section of respiratory issues and reflux. For now I am not going to change her PPI will leave her on the omeprazole 40 mg but I could consider changing this as we go forward as she may be under metabolized in this particular molecule. Right now she has quite a large supply on hand so I think will wait until she uses more of it. Return office visit in 8 weeks and will go over what we have at that point. Orders: Orders Comprehensive Met. Panel Today K21.9 - Gastro-esophageal reflux disease without esophagitis US abdomen complete Today K21.9 - Gastro-esophageal reflux disease without esophagitis EGD - GI Use Only Today K21.9 - Gastro-esophageal reflux disease without esophagitis Complete Blood Count Auto Diff Today K21.9 - Gastro-esophageal reflux disease without esophagitis FL barium swallow Today K21.9 - Gastro-esophageal reflux disease without esophagitis Rast Allergen Today R19.7 - Diarrhea, unspecified LABS: Laboratory Tests 08/26/24 14:47 WBC 8.2 Hgb 13.8 Hct 41.6 Plt Count 434 H Estimated GFR > 60 Total Bilirubin 0.4 AST 22 ALT 15 Alkaline Phosphatase 96 Tiss Transglutamin IgA <1.0 RAST PANEL SHOWS NO SIGNIFICANT FOOD ALLERGIES BARIUM SWALLOW 11/12/2024 FINDINGS: Dual and single contrast images of the esophagus demonstrate normal caliber, contour, and mucosal pattern. No evidence of stricture, mass, or ulcerations identified. Esophageal peristalsis was normal. No evidence of hiatus hernia identified. Significant gastroesophageal reflux is seen up to the thoracic inlet. Dual contrast and single contrast images of the stomach demonstrated a normal contour. The gastric rugal folds have a thickened appearance, suggestive of gastritis. No masses or ulcerations are seen. Contrast freely passed into the gastric antrum and duodenal bulb without delay. Single and air-contrast images of the duodenal bulb demonstrate no abnormality. The duodenal sweep has a normal appearance, course, and mucosal fold appearance. The imaged proximal jejunum has a normal fold pattern and caliber. FLUOROSCOPY TIME: 2 minutes 8 seconds Number of Spot Images: 8 Number of Cine: 12 DOSE AREA PRODUCT: 1235 uGy-m2 (microgray-meter squared) FL/FL barium swallow IMPRESSION: 1. Severe gastroesophageal reflux. 2. Thickened appearance of the gastric rugal folds, suggestive of gastritis. ULTRASOUND OF THE ABDOMEN 08/26/2024 FINDINGS: PANCREAS: Normal. ABDOMINAL AORTA: The proximal, mid, and distal segments are normal in caliber. INFERIOR VENA CAVA: Visualized portions are normal. LIVER: Normal. The liver is normal in size. The liver contour is normal. Parenchymal echogenicity is normal. No focal hepatic lesion. There is no intrahepatic biliary duct dilatation seen. GALLBLADDER: Normal. The gallbladder is physiologically distended without evidence of stones, sludge, polyps, wall thickening or pericholecystic fluid. COMMON BILE DUCT: Normal in caliber measuring 0.2 cm in diameter. RIGHT KIDNEY: Normal. No hydronephrosis. No renal calculi or focal parenchymal lesions. The kidney measures 9.3 cm in maximum dimension. LEFT KIDNEY: Normal. No hydronephrosis. No renal calculi or focal parenchymal lesions. The kidney measures 10.3 cm in maximum dimension. SPLEEN: Normal. The spleen measures 9.6 cm in maximum dimension. FREE FLUID: None. US/US abdomen complete IMPRESSION: Normal ultrasound. EGD BIOPSY TODAY'S VISIT She feels that the omeprazole is helping her she really notices a difference when she does not take it. We review the test that show that she has very severe GERD and this likely is causing the globus sensation and possibly also causing the increased mucus causing her to have to clear her throat along with her allergies. I let her know that despite her young age, unless we find some other reversible cause she may need to consider putting blocks under the head of her bed to mitigate nocturnal regurg of stomach contents irritating the laryngeal tissues. There was no immediately visible hiatal hernia on the barium swallow of course it is possible that it could be a sliding type hernia. Because she continues to have dysphagia I think it is important that we get an EGD to see if there is any scar tissue. I am also going to try switching her PPI from omeprazole to esomeprazole to see if this works better for her. We review her RAST panel and there are no significant food allergies and there is no reason to believe that her gallbladder is involved in terms of gallstones. Return office visit in 3 months and of course after her procedure. [facility] Surgical History S/P tonsillectomy History of appendectomy Family History Mother Hodgkin lymphoma Maternal Grandmother Breast cancer Social History Alcohol intake: current Alcohol intake frequency: holidays/special occasions only Patient Tobacco Use Status: Never used Tobacco Review of Systems Const Denies fatigue, Denies fever(s), Denies night sweats, Denies poor appetite and Denies weight loss ENT Reports Normal hearing present, Denies dental pain, Reports dysphagia, Denies hearing loss, Denies mouth pain, Reports nasal discharge, Reports odynophagia, Denies throat swelling, Denies tongue swelling and Reports other (Dentition adequate) Card Reports no additional complaints Resp Reports no additional complaints and Reports wheezing GI Details: Denies abdominal pain, Denies melena, Denies bloating, Denies hematochezia, Denies constipation, Denies GI cramping, Reports dysphagia, Denies excessive flatus, Denies early satiety, Reports heartburn, Denies diarrhea, Denies nausea, Reports odynophagia, Denies vomiting and Denies hematemesis Skin/Breast Denies pruritus, Denies lesions, Denies rash and Denies jaundice Neuro Reports Normal hearing present and Denies Abnormal speech present Endo Denies fatigue Aller/Immun Reports seasonal rhinorrhea, Denies throat swelling, Denies tongue swelling and Reports wheezing Physical Exam Vital Signs: Last Vital Signs Pulse 98 02/24/25 14:47 BP 106/58 L 02/24/25 14:47 Pulse Ox 97 02/24/25 14:47 Oxygen Delivery Method Room Air 02/24/25 14:47 BMI result Body Mass Index 30.7 Const General: cooperative, no acute distress, well developed and well groomed Nutritional Appearance: well nourished and obese Orientation/consciousness: oriented to person, oriented to place and oriented to time Limitations: No language barrier HEENT Head: Yes normocephalic and Yes atraumatic Eyes General: appearance normal, both eyes and all related structures Pupils: Equal, round and reactive pupils present Neck Neck: Yes normal visual inspection and Yes no lymphadenopathy Thyroid: Thyroid normal Resp Effort & Inspection: normal respiratory effort and able to speak in complete sentences Auscultation: clear to auscultation bilaterally Cardio Rate: regular rate Rhythm: regular rhythm Heart sounds: Normal, physiologic split S2 sound present Peripheral pulses: radial pulses present and posterior tibial pulses present GI Inspection: No distended, No Abdominal panniculus present and Yes obesity Palpation (GI): Soft to palpation, nontender, no guarding, not rigid and No hepatosplenomegaly present Percussion: Yes normal to percussion Auscultation: normal bowel sounds Rectal Exam - Female: deferred Skin General skin exam: no rashes or lesions noted, turgor normal, skin not dry, no jaundice, No spider nevi and no striae Rashes: no rashes Nails: normal Neuro General: oriented to person, oriented to place and oriented to time Cranial nerves: Yes Equal, round and reactive pupils present and Yes Normal hearing present Speech: No Abnormal speech present Extrem General: Yes normal to inspection, No clubbing, No cyanosis and No edema Psych Appearance: grossly normal and well kempt Mental Status: mental status grossly normal Speech and movement: Normal speech and movement present Affect: normal affect Attitude: cooperative Thought process: Normal thought process present and not confabulating Thought content: Normal thought content present Insight: Fair insight present (Psych) Judgement: Fair judgement present (Psych) Results Reviewed Results Reviewed: Laboratory Tests 08/26/24 14:47 WBC 8.2 Hgb 13.8 Hct 41.6 Plt Count 434 H Estimated GFR > 60 Total Bilirubin 0.4 AST 22 ALT 15 Alkaline Phosphatase 96 Tiss Transglutamin IgA <1.0 RAST PANEL SHOWS NO SIGNIFICANT FOOD ALLERGIES BARIUM SWALLOW 11/12/2024 FINDINGS: Dual and single contrast images of the esophagus demonstrate normal caliber, contour, and mucosal pattern. No evidence of stricture, mass, or ulcerations identified. Esophageal peristalsis was normal. No evidence of hiatus hernia identified. Significant gastroesophageal reflux is seen up to the thoracic inlet. Dual contrast and single contrast images of the stomach demonstrated a normal contour. The gastric rugal folds have a thickened appearance, suggestive of gastritis. No masses or ulcerations are seen. Contrast freely passed into the gastric antrum and duodenal bulb without delay. Single and air-contrast images of the duodenal bulb demonstrate no abnormality. The duodenal sweep has a normal appearance, course, and mucosal fold appearance. The imaged proximal jejunum has a normal fold pattern and caliber. FLUOROSCOPY TIME: 2 minutes 8 seconds Number of Spot Images: 8 Number of Cine: 12 DOSE AREA PRODUCT: 1235 uGy-m2 (microgray-meter squared) FL/FL barium swallow IMPRESSION: 1. Severe gastroesophageal reflux. 2. Thickened appearance of the gastric rugal folds, suggestive of gastritis. ULTRASOUND OF THE ABDOMEN 08/26/2024 FINDINGS: PANCREAS: Normal. ABDOMINAL AORTA: The proximal, mid, and distal segments are normal in caliber. INFERIOR VENA CAVA: Visualized portions are normal. LIVER: Normal. The liver is normal in size. The liver contour is normal. Parenchymal echogenicity is normal. No focal hepatic lesion. There is no intrahepatic biliary duct dilatation seen. GALLBLADDER: Normal. The gallbladder is physiologically distended without evidence of stones, sludge, polyps, wall thickening or pericholecystic fluid. COMMON BILE DUCT: Normal in caliber measuring 0.2 cm in diameter. RIGHT KIDNEY: Normal. No hydronephrosis. No renal calculi or focal parenchymal lesions. The kidney measures 9.3 cm in maximum dimension. LEFT KIDNEY: Normal. No hydronephrosis. No renal calculi or focal parenchymal lesions. The kidney measures 10.3 cm in maximum dimension. SPLEEN: Normal. The spleen measures 9.6 cm in maximum dimension. FREE FLUID: None. US/US abdomen complete IMPRESSION: Normal ultrasound. Assessment & Plan Assessment & Plan (1) GERD (gastroesophageal reflux disease): Code(s): K21.9 - Gastro-esophageal reflux disease without esophagitis Category: Medical (2) Globus sensation: Code(s): R09.A2 - Foreign body sensation, throat Category: Medical Plan She feels that the omeprazole is helping her she really notices a difference when she does not take it. We review the test that show that she has very severe GERD and this likely is causing the globus sensation and possibly also causing the increased mucus causing her to have to clear her throat along with her allergies. I let her know that despite her young age, unless we find some other reversible cause she may need to consider putting blocks under the head of her bed to mitigate nocturnal regurg of stomach contents irritating the laryngeal tissues. There was no immediately visible hiatal hernia on the barium swallow of course it is possible that it could be a sliding type hernia. Because she continues to have dysphagia I think it is important that we get an EGD to see if there is any scar tissue. I am also going to try switching her PPI from omeprazole to esomeprazole to see if this works better for her. We review her RAST panel and there are no significant food allergies and there is no reason to believe that her gallbladder is involved in terms of gallstones. Return office visit in 3 months and of course after her procedure. EGD BIOPSY Medications: New esomeprazole magnesium 40 mg PO BID 60 caps 3RF K21.9 - Gastro-esophageal reflux disease without esophagitis, R09.A2 - Foreign body sensation, throat On Hold omeprazole Hold Comment: Doctor's Order 40 mg PO BID 60 caps 6RF Coding Level of Care Code Est Pt Level 3 (81815) Diagnoses GERD (gastroesophageal reflux disease) K21.9 Globus sensation R09.A2
--- OUTSIDE RECORDS SUMMARY | 2025-02-24 14:37 | XMS_ITS | Clinical Summary ---
Author Organization [facility] Address [address] [place] [address] Care Team Providers Care Garnisher Name Role Phone Unavailable Primary Care Provider Unavailabl e Social History Tobacco Use Types Packs/Day Years Used Date Smoking Tobacco: Never Assessed Sex and Gender Information Value Date Recorded Sex Assigned at Not on file Gender Identity Not on file Sexual Orientation Not on file Plan of Treatment Not on file
[2025-02-24 14:47] VITALS: BP 106/58; PULSE 98; O2SAT 97; BMI 30.7
== END 2025-02-24 15:29 | disposition home or self-care (01) ==
LOC: HO.HGI 14:36
PROVIDERS: PCP Nurse Practitioner Primary Care; Visit Provider Nurse Practitioner
DX: K21.9 Gastro-esophageal reflux disease without esophagitis (principal); R09.A2 Foreign body sensation, throat
CPT/HCPCS: 99213

== ENCOUNTER → 2025-02-24 14:35 | Outpatient (BNVA) | payer OTHER, SELFPAY | PROVIDERS: PCP Nurse Practitioner Primary Care; Visit Provider Nurse Practitioner ==

== ENCOUNTER 2025-03-24 09:58 | Day surgery (SDC) | payer OTHER, SELFPAY ==
--- OUTSIDE RECORDS SUMMARY | 2025-03-01 11:19 | XMS_ITS | Clinical Summary ---
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
--- NOTE | 2025-03-23 10:44 | P.CONAN_ITS ---
Documented by User: Felicitas Rebolledo NP 03/23/25 10:45 HPI - Anesthesia Eval Consult details Narrative: 24yo F for Upper Endoscopy PMFSH Active Problems Active Problems: All Active Problems Globus sensation (Acute) Diarrhea (Acute) Low back pain (Acute) Anxiety (Acute) ADHD (Acute) Obesity (BMI 30.0-34.9) (Acute) GERD (gastroesophageal reflux disease) (Acute) Chronic cough (Acute) Environmental allergies (Acute) Past Medical History Medical History (Updated 03/24/25 @ 11:24 by Lizeth Fuller RN) GERD (gastroesophageal reflux disease) Dysphagia Family History Family History Mother Hodgkin lymphoma Maternal Grandmother Breast cancer Surgical History Surgical History S/P tonsillectomy History of appendectomy Social History Social History Are you a primary customer care team coach to a significant other at home: No Do you presently have visiting nurse or other home services: No Alcohol intake: current Alcohol intake frequency: holidays/special occasions only Patient Tobacco Use Status: Never used Tobacco Substance Use Frequency: Occasionally Have you been hit, kicked, punched, or otherwise hurt by someone within the past year? If so, by whom?: No Are you DNR?: No Advance Directives: No Advance Directives Information Provided: Yes FDLMP: a few weeks ago Poor oral hygiene: No Meds Allergies Allergy/AdvReac Type Severity Reaction Status Date / Time amoxicillin Allergy Unknown Rash Verified 03/24/25 11:24 fluoxetine (From Prozac) Allergy Unknown Rash Verified 03/24/25 11:24 Penicillins Allergy Unknown Rash Verified 03/24/25 11:24 Home Medications ?Medication ?Instructions ?Recorded ?Confirmed ?Last Taken ?Type L norgest/E estradiol-E estrad 1 tab PO DAILY 08/19/24 03/24/25 Unknown History 0.15 mg-30 mcg (84)/10 mcg(7) tabs,3mos ([place]) methylphenidate HCl 36 mg 36 mg PO QAM 08/19/24 Unknown History tablet,extended release 24 hr fluticasone propionate 50 intranasal 02/24/25 Unknown History mcg/actuation nasal spray,suspension Assessment and Plan Assessment Anesthesia Assessment: Chart Reviewed Documented by User: Woo Mujica MD 03/24/25 11:41 [facility] Past Medical History Medical History (Updated 03/24/25 @ 11:24 by Lizeth Fuller RN) GERD (gastroesophageal reflux disease) Dysphagia Family History Family History Mother Hodgkin lymphoma Maternal Grandmother Breast cancer Family history of problems with anesthesia: No Surgical History Surgical History S/P tonsillectomy History of appendectomy History of Problems with Anesthesia: No Social History Social History Are you a primary customer care team coach to a significant other at home: No Do you presently have visiting nurse or other home services: No Alcohol intake: current Alcohol intake frequency: holidays/special occasions only Patient Tobacco Use Status: Never used Tobacco Substance Use Frequency: Occasionally Have you been hit, kicked, punched, or otherwise hurt by someone within the past year? If so, by whom?: No Are you DNR?: No Advance Directives: No Advance Directives Information Provided: Yes FDLMP: a few weeks ago Poor oral hygiene: No Meds Allergies Allergy/AdvReac Type Severity Reaction Status Date / Time amoxicillin Allergy Unknown Rash Verified 03/24/25 11:24 fluoxetine (From Prozac) Allergy Unknown Rash Verified 03/24/25 11:24 Penicillins Allergy Unknown Rash Verified 03/24/25 11:24 Home Medications ?Medication ?Instructions ?Recorded ?Confirmed ?Last Taken ?Type L norgest/E estradiol-E estrad 1 tab PO DAILY 08/19/24 03/24/25 Unknown History 0.15 mg-30 mcg (84)/10 mcg(7) tabs,3mos ([place]) methylphenidate HCl 36 mg 36 mg PO QAM 08/19/24 Unknown History tablet,extended release 24 hr fluticasone propionate 50 intranasal 02/24/25 Unknown History mcg/actuation nasal spray,suspension Exam Airway Mallampati Class: II TM Dist: >3cm Neck ROM: Full Assessment and Plan Assessment Anesthesia Assessment: Anesthesia Plan Discussed Final Anesthetic Review Family History of Problems with Anesthesia: No History of Problems with Anesthesia: No NPO: Yes ASA Class: II Final Preanesthetic Review: No Changes in Pt Med Stat, Meds/Allgs Chart Reviewed, Consent Obtained/Reviewed and Anes Risks/Benef Reviewed Patient Risk: Low Procedure Risk: Low Anesthetic Plan Anesthetic Plan: TIVA Disposition: Standard PACU
[2025-03-24] MEDS: Lactated Ringers 1,000 ML 100 ML IVCONT (11:06)
[2025-03-24 11:07] VITALS: BMI 32.3
--- NOTE | 2025-03-24 11:12 | MHC.SHP ---
Pre-Procedural Eval Section A - 24 Hr Update-Section A only Date of Service: 03/24/25 Section B - Complete if H&P > 30 days Chief Complaint: Dysphagia, unspecified Relevant Family History (Specify if Yes): No Relevant Social History: None Present Medications: see Short Stay Collaborative assessment Medical History: Significant History (gerd, adhd ) History of Previous Operations: Relevant previous surgery/procedure and date(s) (S/P tonsillectomy History of appendectomy) Allergies: Allergies Allergy/AdvReac Type Severity Reaction Status Date / Time amoxicillin Allergy Unknown Rash Verified 02/24/25 14:40 fluoxetine (From Prozac) Allergy Unknown Rash Verified 11/04/24 15:40 Penicillins Allergy Unknown Rash Verified 11/04/24 15:40 Review of Systems Sugical H&P ROS: Negative: Constitution, Cardiovascular, Respiratory, Neurological, Psychiatric, Hem-Onc, Allergic/Immunologic, Gastrointestinal, Genitourinary, Musculoskeletal, Integumentary, Endocrine and Eyes/Ears/Nose/Throat Exam Surgical H&P Exam: Normal: HEENT, Normal: Heart, Normal: Lungs, Normal: Extremities, Normal: Abdomen, Normal: Skin and Normal: Neurological Plan Diagnosis/Plan: Unchanged I have reviewed the history and physical and performed a pertinent physical examination on my patient. No changes have occurred unless specified. EGD with diltn, possible APC Time Spent With Patient Time: Total time managing care of this patient today ____ minutes.
[2025-03-24 11:18] LABS: UPreg QC Valid YES; Urine Pregnancy NEGATIVE (NEGATIVE)
[2025-03-24 11:21] VITALS: BP 111/63; PULSE 75; RESP 16; TEMP 36.3; O2SAT 96
--- NOTE | 2025-03-24 12:13 | W.PM.OPN ---
Operative Note Operative Note Date of Service: 03/24/25 Narrative: Procedure Description: EGD Indication: dysphagia Anesthesia: MAC FLEXIBLE TRANSORAL UPPER GASTROINTESTINAL ENDOSCOPY UPPER ENDOSCOPY Consent: Indications for the procedure and potential complications of bleeding, perforation, reaction to medications and missed diagnosis were discussed with the patient and informed consent was obtained. Instrument: Olympus GIF H 190 J mid size upper endoscope Monitoring: Vital signs and clinical assessment, continuous EKG monitoring, Pulse oximetry, Carbon Dioxide monitoring and blood pressure monitoring were done throughout the procedure. Procedure: The patient was placed in the left lateral decubitis position and pre-procedure medications were administered and a bite block was placed. The endoscope was inserted into the mouth and advanced under direct vision to the third part of duodenum. A careful inspection was made as the upper endoscope was withdrawn including a retroflexed examination of the proximal stomach; Findings and interventions are described below. Findings: Larynx:normal Esophagus: GE junction at 37 cm, diaphragm hiatus at 37 cm, irregular Z line, bx taken from GEJ, distal and proximal areas- balloon dilation at LES and UES to 20 mm, no tears seen Stomach: mild erythema . Biopsies were obtained. Grade 2 flap valve on retroflexed examination of the cardia. Duodenum: Normal bulb and descending duodenum, bx taken Intervention: Biopsies as noted above, balloon dilation Impression/Findings: mild gastritis PLAN: await bx GERD precautions
[2025-03-24 12:19] VITALS: BP 106/58; PULSE 73; RESP 16; TEMP 36.5; O2SAT 95
[2025-03-24 12:34] VITALS: BP 128/79; PULSE 75; RESP 20; TEMP 36.8; O2SAT 99
== END 2025-03-24 13:11 | disposition home or self-care (01) ==
PROVIDERS: Nurse Practitioner; PCP Nurse Practitioner Primary Care; Visit Provider Internal Medicine Gastroenterology
PROC: 0DJ08ZZ Inspection of Upper Intestinal Tract, Via Natural or Artificial Opening Endoscopic (ICD-10-PCS; CPT 43235; principal; 2025-03-24 13:10)
DX: R13.10 Dysphagia, unspecified (principal); K22.9 Disease of esophagus, unspecified; K29.60 Other gastritis without bleeding; R09.A2 Foreign body sensation, throat; R10.13 Epigastric pain; Z79.899 Other long term (current) drug therapy
CPT/HCPCS: 43249; 43239; 81025; 88305; 88313; 88342; C1726; J2003; J2704

== ENCOUNTER → 2025-03-24 09:58 | Outpatient (BNV) | payer OTHER, SELFPAY | PROVIDERS: PCP Nurse Practitioner Primary Care; Visit Provider Internal Medicine Gastroenterology | DX: K22.89 Other specified disease of esophagus (principal); K29.70 Gastritis, unspecified, without bleeding; R13.10 Dysphagia, unspecified | CPT/HCPCS: 43239; 43249 ==

== ENCOUNTER 2025-08-02 15:45 | Outpatient (AMB) | payer OTHER, SELFPAY ==
[2025-08-02 15:48] VITALS: BP 106/62; PULSE 111; O2SAT 97; BMI 32.8
--- NOTE | 2025-08-02 15:48 | A.OFFVIS_ITS ---
Vital Signs 08/02/25 15:48 Height 5 ft 6 in Weight 203 lb BMI 32.8 BP 106/62 Blood Pressure Location Rt brachial Position Sitting Pulse 111 H Pulse Source Pulse Oximeter Pulse Oximetry (%) 97 Oxygen Delivery Method Room Air Intake Visit Reasons: cough Allergies amoxicillin Allergy (Unknown, Verified 03/24/25 11:24) Rash fluoxetine (From Prozac) Allergy (Unknown, Verified 03/24/25 11:24) Rash Penicillins Allergy (Unknown, Verified 03/24/25 11:24) Rash HPI HPI cough: Details: 24-year-old lady, nonsmoker, with no prior personal history of lung disease and family history of asthma in patient's brother referred for evaluation of chronic cough ongoing for approximately 12 months that initially started with COVID-19 infection. Patient describes cough as intermittently productive of small amount of sputum with no significant diurnal variation, sometimes worse after eating. Patient has been tried on anti current medications, cough suppressants, albuterol MDI, and antibiotics with no significant changes. She does have a recent normal pulmonary function testing. She does complain of environmental allergies. After the last office visit patient had EGD that showed mild gastritis. She continues essentially with similar complaints, although now with more productive component of underlying chronic cough. [facility] Medical History (Updated 03/24/25 @ 11:24 by Lizeth Fuller RN) GERD (gastroesophageal reflux disease) Dysphagia Surgical History S/P tonsillectomy History of appendectomy Family History Mother Hodgkin lymphoma Maternal Grandmother Breast cancer Social History Are you a primary assisted living care manager to a significant other at home: No Do you presently have visiting nurse or other home services: No Alcohol intake: current Alcohol intake frequency: holidays/special occasions only Patient Tobacco Use Status: Never used Tobacco Review of Systems Const Denies daytime sleepiness, Denies excessive sweating, Denies fatigue, Denies fever(s), Denies lethargy, Denies malaise, Denies night sweats, Denies snoring and Denies weight loss Eyes Denies blurry vision and Denies itchy eyes ENT Denies nasal congestion, Denies post nasal drip, Denies sinus pain, Denies sinus pressure and Denies other ( Thrush) Card Denies chest pain, Denies pedal edema, Denies dyspnea, Denies orthopnea and Denies paroxysmal nocturnal dyspnea Resp Reports cough, Denies hemoptysis, Denies excessive phlegm production, Denies dyspnea, Denies snoring and Denies wheezing GI Denies abdominal pain and Denies heartburn Musc Denies myalgias, Denies arthralgias and Denies joint swelling Skin/Breast Denies rash Neuro Denies memory loss and Denies seizure-like activity Psych Denies abnormal sleep pattern, Denies anxiety and Denies memory loss Endo Denies excessive sweating, Denies fatigue and Denies heat intolerance Saran/Lymph Denies easy bruising Aller/Immun Denies itchy eyes, Denies seasonal rhinorrhea and Denies wheezing Physical Exam Vital Signs: Last Vital Signs Pulse 111 H 08/02/25 15:48 BP 106/62 08/02/25 15:48 Pulse Ox 97 08/02/25 15:48 Oxygen Delivery Method Room Air 08/02/25 15:48 BMI result Body Mass Index 32.8 Const General: no acute distress and alert Nutritional Appearance: obese Orientation/consciousness: Other orientation findings ( oriented) HEENT Head: Yes atraumatic Eyes General: appearance normal, both eyes and all related structures Sclerae: sclerae normal EOM: EOMs intact bilaterally Neck Neck: Yes supple Lymphatic: no lymphadenopathy noted Resp Effort & Inspection: normal respiratory effort and no use of accessory muscles Auscultation: clear to auscultation bilaterally Cardio Rate: regular rate Rhythm: regular rhythm Heart sounds: no gallops, no murmurs and no rubs Skin General skin exam: other ( warm) Extrem General: No clubbing, No cyanosis and No edema Assessment & Plan Assessment & Plan (1) Chronic cough: Code(s): R05.3 - Chronic cough Category: Medical Plan: Will obtain sputum cultures including fungal, if negative, will consider gabapentin for cough suppression. Orders: Orders Sputum Cult + Gram stain 08/02/25 R05.3 - Chronic cough Fungus Cult Other 08/02/25 R05.3 - Chronic cough Coding Level of Care Code Est Pt Level 3 (86319) Diagnoses Chronic cough R05.3
--- OUTSIDE RECORDS SUMMARY | 2025-08-02 20:01 | XMS_ITS ---
Author Name [facility] Organization Unknown Encounters Encounter Type Encounter Reason Primary Diagnosis Location Date Ambulatory [facility] 10/24/2021 Care Team Organization Name Specialty Phone Email Start Date End Da te [facility] JAZMINE BOYLEOY Primary Care 08/13/20222023 [facility] 10/24/2021 05/24/2024 [facility] 10/24/2021 10/24/2021
--- OUTSIDE RECORDS SUMMARY | 2025-08-02 20:02 | XMS_ITS | Data Portability ---
Author Organization [place] [facility], Allergy Address [address] [place] [id number] Care Team Providers Care Sap Fico Business Analyst Name Role Phone JAZMINE NAYLOR Primary Care Provider [phone] LOVE PARRY Referring Provider Assessment Encounter Date Assessment Date Assessment LastModified [...] that the patient has laryngopharyngeal reflux disease (LPRD). Laryngopharyngeal reflux (LPR) is the escape of [...] to help the patient meet their vocal needs. - Follow-up in 3-4 months after [facility] PRINTER OPERATOR evaluation & therapy Not available 08/26/2024 10:18:17 12/14/2024 12/14/2024 1. Nasal Congest ion 2. Rhinitis 3. [...] some intranasal medication first. - Flonase twice daily- continue - Wants to hold on allergy testing - can consider in the future 1. Laryngeal pharyngeal reflux disease 2. Muscle tension dysphonia It is my impression that the patient has laryngopharyngeal reflux disease (LPRD) . Laryngopharyngeal reflux (LPR) is the escape of [...] to help the patient meet their vocal needs. - Follow-up in 3-4 months after [facility] PRINTER OPERATOR evaluation & therapy Not available 12/15/2024 10:25:28 03/17/2025 03/17/2025 24-year-old tiara rizo presents for follow-up of nasal congestion and LPR. Exam today demonstrates left-sided septal deviation with turbinate hypertrophy. As symptoms are improved, she may continue with fluticasone nasal spray or ipratropium nasal spray. I requested that patient obtain a copy of her allergy test results and fax them to our office for review. Patient with LPR and GERD. She is scheduled to follow-up with her utility hand for an upper endoscopy later this week. I recommended that she continue to work with her utility hand for management of uncontrolled gastroesophageal reflux. Referral was placed again to [facility] for speech therapy for muscle tension dysphonia. If patient does not hear from [facility], I asked her to call our office so that we may look into the referral. Patient agrees with the plan and all questions were answered. [email or web address] Not available 03/17/2025 16:44:47 Plan of Treatment Reminders Order Date Submit Date Provider Last Modified By Organization Details Last Modified Time Details Appointments None recorded. Lab None recorded. Referral speech language pathologis t referral [address] [place], [address], 5 15:14:43 speech language pathologis t referral - Referral for speech therapy. Thank you. [address]23 [email or web address] [place], [address], 4 10:41:38 Procedures None recorded. Surgeries None recorded. Imaging None recorded. Medication Orders fluticason e propionate 50 mcg/actuat ion nasal spray,susp ension 2023 024 [facility] #[id number], [address] [place], [address], 4 09:08:36 Patient TargetsNo targets recorded. Patient InstructionsNo instructions recorded. Reason for Referral Speech Language Pathologist Referral for Muscle tension Referral for speech therapy. Thank you. Referring Physician: Sonam Del Valle, Otolaryngology, Encounter Date: 08/26/2024 Speech Language Pathologist Referral for Muscle tension Referring Physician: Krista Stewart Otolaryngology, Encounter Date: 03/17/2025 Problems Name Problem SNOMED Code Status Onset Date Resolution Date Notes Provider Name and Address Organization Details Recorded Time Conductiv e hearing loss 51036652 Active 2018 Conductiv e hearing loss, unilatera l, left ear, with unrestric karen hearing on the contralat eral side; Note: Date Diagnosed : 03/16/2019 4:16 PM (H90.12) Not Available [facility] 4 02:24:30 Disorder of left Eustachia n tube 79356460690 35360 Active 2018 Other specified disorders of Eustachia n tube, left ear; Note: Date Diagnosed : 03/16/2019 4:16 PM (H69.82) Not Available [facility] 4 02:24:41 Impacted cerumen in left ear 69048107365 82928 Active 2018 Impacted cerumen, left ear; Note: Date Diagnosed : 03/17/2019 3:55 PM (H61.22) Not Available [facility] 4 02:24:44 Abnormal auditory perceptio n 62966873 Active 2018 Other abnormal auditory perceptio ns, left ear; Note: Date Diagnosed : 04/12/2019 11:39 AM (H93.292) Not Available [facility] 4 02:24:21 Nasal congestio n 28631551 Active 2023 SONAM DEL VALLE MD [address] [place] [address],[place] [address], [place], [address] , [facility] - [facility] 4 08:52:44 Muscle tension 823930066 Active 2023 SONAM DEL VALLE MD [address] [place] [address],[place] [address], [address] , [facility] 4 09:11:12 Laryngoph aryngeal reflux 937369495 Active 2023 SONAM DEL VALLE MD [address] [place] [address],[place] [address], [address] , [facility] - [facility] [place] 4 09:11:38 Chronic rhinitis 95362637 Active 2023 SONAM DEL VALLE MD [address] [place] [address],[place] [address], [address] , [facility] - [facility] [place] 4 10:18:21 Hypertrop hy of nasal turbinate s 47820286 Active 2023 SONAM DEL VALLE MD [address], [place], [address] , [facility] - [facility] 4 10:18:26 Allergic rhinitis 04962795 Active 2024 SONAM DEL VALLE MD [address], [place], [address] , [facility] - [facility] [place] 5 10:25:19 Gastro-es ophageal reflux disease with esophagit is 531317683 Active 2024 KRISTA STEWART PA-C [address], [place], [address] , [facility] - [facility] 5 16:41:42 Problem Notes None recorded. Procedures Surgical History Date Name Laterality Status Provider Name and Address Organization Details Recorded Time 08/26/20 24 Fiberoptic Laryngoscopy (Comprehensive) completed SONAM DEL VALLE MD [address] [facility] [place],[address], [place], [address], [facility] 08/26/2024 10:16:49 Imaging Results None recorded. Procedure Notes None recorded. Medical Equipment None Reported. Allergies Allergen ID Allergen Name Allergen Category Reaction Reaction Severity Criticality Documentation Date Start Date Code Code System Note Provider Name and Address Organization Details Recorded Time 63003 Augmentin medicatio n other Not available Not available 02/17/2024 57426 2 RxNorm React ion: unkno wn, unspe cifie d;; Not Available [facility] 4 00:54:56 Medications Name Sig Start Date [...] mcg tablet 2018 active Medicatio n ID: [id number] Du ration Value: 28 Brand Name: Nortrel 0.5/35 (28) Send Method: E-Prescri bed Subs Allowed: subs OK Specia l Instructi on: TAKE 1 TABLET BY MOUTH EVERY DAY Medic ationGene ricName: Nortrel 0.5/35 (28) Not Available Not Available Not Available esomeprazo le magnesium 40 mg capsule,de layed release TAKE 1 CAPSULE BY MOUTH 2 TIMES A DAY active Not Available Not Available No t Available omeprazole 20 mg capsule,de layed release [...] in capsule 2018 active Medicatio n ID: [id number] Br and Name: multivita min Send Method: E-Prescri bed Subs Allowed: subs OK Medica tionGener icName: multivita min Not Available Not Available Not Available fluticason e propionate 50 mcg/actuat ion nasal spray,susp ension USE 1 SPRAY IN EACH NOSTRIL TWICE A DAY FOR 30 DAYS active Not Available Not Available No t Available naproxen 500 mg tablet TAKE 1 TABLET BY MOUTH TWICE A DAY DIRECTED active Not Available Not Available No t Available methylphen idate ER 36 mg tablet,ext ended release 24 hr TAKE 1 TABLET BY MOUTH EVERY DAY IN THE MORNING active Not Available Not Available No t Available Ventolin HFA 90 mcg/actuat ion aerosol inhaler INHALE 2 PUFFS EVERY 4 TO 6 HOURS NEEDED active Not Available Not Available No t Available iron 18 mg tablet 2018 active Medicatio n ID: [id number] Br and Name: iron Send Method: E-Prescri [...] t Available Vitals Date Recorded Body height Provider Name an d Address Organization Details Last Updated DateTime 12/14/2024 167.64 cm GABRIELLE ROCKSay [place] [facility] 12/14/2024 16:06:25 Date Recorded Body height Body mass index (BMI) Body weight Provider Name and Address Organization Details Last Updated DateTime 03/17/2025 167.64 cm 30.7 kg/m2 97542.55 g Karen Rand [place] [facility] 03/17/2025 14:42:44 Date Recorded Body height Body mass index (BMI) Body weight Provider Name and Address Organization Details Last Updated DateTime 08/26/2024 167.64 cm 30.7 kg/m2 47502.55 g Mary Kay Araujo [place] [facility] 08/26/2024 08:49:48 Social History None recorded. Functional Status None recorded. Mental Status None recorded. Family History Nothing Reported. Medical History No medical history recorded. Gynecological HistoryNo gynecological history recorded. Obstetrics History GPAL:G 0 P 0 0 0 0 Past Encounters Encounter ID Performer Location Encounter Start Date Encounter Closed Date Diagnosis/Indication Diagnosis SNOMED-CT Code Diagnosis ICD10 Code Diagnosis IMO Codes Diagnosis Note [id number] SONAM DEL VALLE MD [facility] [address] [address] 08/26/2024 08:29:02 08/26/2024 15:17:29 Nasal congestion 26804871 R09.81 Muscle tension 363726839 R29.898 Laryngopha ryngeal reflux 330622835 K21.9 Chronic rhinitis 7482812 6 J31.0 Hypertroph y of nasal turbinates 52673833 J34.3 [id number] SONAM DEL VALLE MD [facility] [address] [address] 12/14/2024 15:59:10 12/14/2024 16:31:31 Nasal congestion 07926358 R09.81 Allergic rhinitis 917061 04 J30.9 Laryngopha ryngeal reflux 491585128 K21.9 Muscle tension 452169739 R29.898 [id number] KRISTA STEWART PA-C [facility] [address] [address] 03/17/2025 14:14:48 03/17/2025 15:13:51 Laryngopharyngeal reflux 042469909 K21.9 Muscle tension 369013813 R29.898 Gastro-eso phageal reflux disease with esophagitis 651651888 K21.00 0966139949 Chronic rhinitis 4040824 6 J31.0 Nasal congestion 9470766 0 R09.81 Health Concerns Section Related Observation LastModified by Organization Detai ls LastModified Time None Recorded Concern Status LastModified by Organization Details LastModified Time None Recorded Advance Directives Directive None Recorded Payers Insurance Date Sequence Insurance Name Policy Number Policy Murphy Covered Member ID Murphy Member ID Guarantor Name 12/07/2024 2 [facility] (MEDICAID HMO) MARINA Crawley [id number] Casi Crawley 02/11/2025 2 [place] [facility] Casi Crawley [id number] Casi Crawley 12/31/2024 2 [facility] (MEDICAID REPLACEMENT - HMO) MARINA Crawley [id number] Casi Crawley 03/21/2025 1 [facility] [id number] Casi Crawley [id number] Casi Crawley Notes Date Note Type Note Provider Name and Address Organization Details Recorded Time 4 text/html ROS as noted in the HPI This is a 23yo who presents today [...] is seasonal. She has not had allergy testing.Associated symptoms: Nasal congestion, nasal pressureMedications trialed: atrovent - no benefitHistory of seasonal allergies: yesHistory of prior nasal trauma: noHistory of recurrent, acute, or chronic sinusitis: noHistory of prior nasal surgery: noPrior intranasal drug use: noSmoking: no SONAM DEL VALLE MD [address] [facility] [place],[facility] [address], [place], [address], [facility] 08/26/2024 10:18:48 5 text/html ROS as noted in the HPI This is a 23yo who presents today [...] is seasonal. She has not had allergy testing.Associated symptoms: Nasal congestion, nasal pressureMedications trialed: atrovent - no benefitHistory of seasonal allergies: yesHistory of prior nasal trauma: noHistory of recurrent, acute, or chronic sinusitis: noHistory of prior nasal surgery: noPrior intranasal drug use: noSmoking: no She was last seen .Interval update: started flonase, significant benefit in nasal breathing She has not yet gone to [facility] PR[facility]PER[facility].Currently working with GI on LPR - no changes currently, planned for endoscopy SONAM DEL VALLE MD [address] [facility] [place],[facility] [address], [place], [address], [facility] 12/15/2024 10:25:42 5 text/html ROS as noted in the HPI 24-year-old female presents for follow-up of nasal congestion and LPR. She has been using Flonase and ipratropium with improvement in nasal congestion and rhinitis. She reports recent allergy testing at [facility] a few months ago but is unsure of the results. She is scheduled for upper endoscopy later this week with her utility hand. She is on PPI therapy for GERD and reports that she continues to have breakthrough acid reflux symptoms with 80 mg daily. She had a barium swallow at [facility] and reports that it showed severe esophageal reflux and esophagitis. FOL in August 2024 demonstrated muscle tension dysphonia and evidence of laryngopharyngeal reflux. She was referred to speech therapy but reports that she did not hear back regarding the referral. Continues to have throat clearing, globus sensation, and hoarseness. History of ETD and several tympanostomy tube sets. SONAM DEL VALLE MD [address] [place] [address], [place], [address], [facility] - [facility] 03/17/2025 22:13:33 OBGyn Episode No OBEpisode recorded.
--- OUTSIDE RECORDS SUMMARY | 2025-08-02 20:02 | XMS_ITS | Clinical Summary ---
[facility] Address [address] [place] [address] Care Team Providers Care Barbecue Cook Name Role Phone Unavailable Primary Care Provider Unavailabl e Social History Tobacco Use Types Packs/Day Years Used Date Smoking Tobacco: Never Assessed Sex and Gender Information Value Date Recorded Sex Assigned at Not on file Gender Identity Not on file Sexual Orientation Not on file Plan of Treatment Not on file
== END 2025-08-02 16:03 | disposition home or self-care (01) ==
LOC: HO.HPS 15:46
PROVIDERS: PCP Nurse Practitioner Primary Care; Visit Provider Internal Medicine Pulmonary Disease
DX: R05.3 Chronic cough (principal)
CPT/HCPCS: 99213